=== PATIENT | male | born 1940 | race Caucasian/White ===

== ENCOUNTER 2018-02-16 10:00 | Outpatient (RCR) | payer OTHER, MEDICAID, SELFPAY | END 2018-02-16 10:05 | disposition home or self-care (01) | LOC: PT 10:00 | PROVIDERS: Family Provider Internal Medicine Adolescent Medicine; PCP Internal Medicine Adolescent Medicine; Visit Provider Nurse Practitioner Family | DX: E11.40 Type 2 diabetes mellitus with diabetic neuropathy, unspecified (principal) | CPT/HCPCS: 97110; 97112; 97163; 97164 ==

== ENCOUNTER 2018-10-22 13:00 | Outpatient (RCR) | payer OTHER, MEDICARE, SELFPAY | END 2018-10-22 13:05 | disposition home or self-care (01) | LOC: PT 13:00 | PROVIDERS: Visit Provider Psychiatry & Neurology Neurology | DX: R26.9 Unspecified abnormalities of gait and mobility (principal) | CPT/HCPCS: 97110; 97112; 97116; 97163; 97164 ==

== ENCOUNTER 2019-09-10 15:54 | Emergency (ER) | payer MEDICARE, OTHER, SELFPAY ==
[2019-09-10 16:01] VITALS: BP 121/63; PULSE 74; RESP 18; TEMP 36.7; O2SAT 97; BMI 35.5
[2019-09-10 16:14] VITALS: BP 121/63; PULSE 74; RESP 18; TEMP 36.7; O2SAT 97; BMI 35.3
--- NOTE | 2019-09-10 16:44 | HMH.EDUTC ---
[facility] Clinical Impression: Laceration Disposition: Home, Self-Care Condition on Discharge: Good Instructions: DI for Laceration Repair -- Simple, DI for Laceration Repair -- Finger Additional Instructions: You have required stitches today. Please read the following instructions so you know how to care for them: 1. Keep wound area dry for the first 24 hours. 2 May clean gently with mild soap and water, after 48 hours to prevent crusting over suture knots. 3. You may shower if your provider gives permission but do not take a bath until the skin is healed.. 4. Never leave a wet dressing or Band-Aid on your stitches as this allows bacteria to reach the area and may cause infection. Band-aids can cause the wound to sweat and not recommended to wear for long periods of time Watch for signs of infection: Increasing redness, tenderness or warmth around the suture site Unusual swelling around the site Appearance of pus around each suture or any red streaks Fever If you develop any of the above signs or symptoms of infection, Follow up with Family Physician immediately 5. Suture removal in _10-12___days 6. Return to [facility] or follow up with family doctor for removal. This can be done by any medical provider during regular hours on Thursday through Thursday, by appointment. Prescriptions: Amoxicillin/Potassium Clav [Augmentin 500mg tab] 500 mg PO BID 5 Days #10 tab Prescription Printed Referrals: Provider,Referral, [Primary Care Provider] - As needed Time of Disposition: 16:49 Medical Decision Making - Abhi Inquiry Pt receiving controlled substance: No Abhi was queried for this patient: No Vital Signs: 09/10/19 16:01 09/10/19 16:14 09/10/19 16:46 Temperature 98.1 F 98.1 F 98.1 F Temperature Source Oral Oral Pulse Rate 74 Pulse Rate [Right] 74 74 Respiratory Rate 18 18 18 Blood Pressure 121/63 Blood Pressure [Right Arm] 121/63 121/63 Blood Pressure Mean [Right Arm] 82 82 Blood Pressure Source [Right Arm] Automatic Cuff Blood Pressure Position [Right Arm] Sitting 02 Sat by Pulse Oximetry 97 97 Oxygen Delivery Method Room Air - Reevaluation(s) Time: 16:52 Reevaluation #1: Medication discussed with pharmacy [facility] [place] - General Stated complaint: AO [id number] to L little finger Time Seen by Provider: 09/10/19 16:20 Mode of Arrival: Ambulatory Source of Information: Patient Limitations: No Limitations Description of Symptoms (Recalled from Triage Doc. by RN): PATIENT C/O LACERATION ON LEFT PINKY FINGER AFTER CUTTING IT ON A TOOL BOX. HE IS UP TO DATE ON HIS TETANUS VACCINE HEENT Symptoms (Recalled from RN notes): No Resp Symptoms (Recalled from RN notes): No Skin Symptoms (Recalled from RN notes): Yes MS Symptoms (Recalled from RN notes): No Functional Status (Recalled from RN notes): WNL - History of Present Illness Provider Complaint: Patient states that he was at home and went to raise up metal tool box lid and it cut his finger States that he applied some pressure and didnt realize his cut was as bad as it was and needed stiches until his looked at it and made him come - Related Data Home Medications Medication Instructions Recorded Confirmed Amlodipine Besylate [Amlodipine 2.5 mg PO DAILY 07/21/18 07/21/18 5mg tab] Cholecalciferol (Vitamin D3) 1,000 unit PO DAILY 07/21/18 07/21/18 [Vitamin D3 1,000 Unit Cap] Duloxetine HCl 20 mg PO HS 07/21/18 07/21/18 clonazePAM [Clonazepam] 1 mg PO BID 07/21/18 07/21/18 hydroCHLOROthiazide [HCTZ 25mg 25 mg PO DAILY 07/21/18 07/21/18 tab] Previous Rx's Medication Instructions Recorded Amoxicillin/Potassium Clav 500 mg PO BID 5 Days #10 tab 09/10/19 [Augmentin 500mg tab] Allergies Allergy/AdvReac Type Severity Reaction Status Date / Time carbamazepine Allergy Unknown I-HIVES Verified 07/21/18 17:54 - Worker's Comp Is this a Worker's Comp case?: No [facility] History - Hepatitis A
[2019-09-10 16:46] VITALS: BP 121/63; PULSE 74; RESP 18; TEMP 36.7; O2SAT 97
== END 2019-09-10 17:03 | disposition home or self-care (01) ==
PROVIDERS: Emergency Provider Nurse Practitioner
DX: S61.217A Laceration without foreign body of left little finger without damage to nail, initial encounter (principal); W22.8XXA Striking against or struck by other objects, initial encounter; Y92.019 Unspecified place in single-family (private) house as the place of occurrence of the external cause; E11.9 Type 2 diabetes mellitus without complications; Z88.8 Allergy status to other drugs, medicaments and biological substances; Z79.899 Other long term (current) drug therapy
CPT/HCPCS: 12001; G0463; 99201

== ENCOUNTER 2019-09-21 13:51 | Emergency (ER) | payer MEDICARE, OTHER, SELFPAY ==
[2019-09-21 14:05] VITALS: BP 116/78; PULSE 85; RESP 18; TEMP 36.7; O2SAT 100; BMI 32.3
[2019-09-21 14:23] VITALS: BP 116/78; PULSE 85; RESP 18; TEMP 36.7; O2SAT 100
== END 2019-09-21 14:23 | disposition home or self-care (01) ==
LOC: UTC 13:59
PROVIDERS: Emergency Provider Nurse Practitioner Family
DX: S61.217D Laceration without foreign body of left little finger without damage to nail, subsequent encounter (principal)

== ENCOUNTER 2019-12-26 11:16 | Emergency (ER) | payer MEDICARE, OTHER, SELFPAY ==
[2019-12-26 11:27] VITALS: BP 143/74; PULSE 82; RESP 17; TEMP 37.2; O2SAT 99; BMI 34.9
--- NOTE | 2019-12-26 11:37 | HMH.EDFALL ---
ED Disposition Clinical Impression: Ankle fracture, lateral malleolus, closed Qualifiers: Encounter type: initial encounter Fracture alignment: displaced Laterality: left Qualified Code(s): S82.62XA - Displaced fracture of lateral malleolus of left fibula, initial encounter for closed fracture Disposition: [facility] Condition on Discharge: Fair Referrals: Provider,Referral, MD [Primary Care Provider] - Forms: Transfer Record - ED - Critical Care Critical Care Time: No Attestation: On , the high probability of a clinically significant, sudden or life threatening deterioration of the following system(s) required my full and direct attention, intervention and personal management. The time I documented below is in addition to time spent performing reported procedures but includes the following listed in this critical care notation. Medical Decision Making - Medical Records Medical records reviewed: Yes: I reviewed the patient's medical records. - Abhi Inquiry Pt receiving controlled substance: Yes (morphine in the ER) Abhi was queried for this patient: No (unable to do so prior to administering meds as patient in acute distress) Reason not queried -: Emergent pt cond-no time Risks and benefits of using a controlled substance: were discussed with pt by me Vital Signs: 12/26/19 11:27 12/26/19 11:51 12/26/19 12:23 Temperature 99.0 F Temperature Source Oral Pulse Rate [Right Radial] 82 73 62 Respiratory Rate 17 20 91 H Blood Pressure [Right Arm] 143/74 H 139/72 133/71 Blood Pressure Mean [Right Arm] 97 94 91 Blood Pressure Source [Right Arm] Automatic Cuff Automatic Cuff Blood Pressure Position [Right Arm] Sitting Sitting 02 Sat by Pulse Oximetry 99 96 92 L Oxygen Delivery Method Room Air 12/26/19 14:30 12/26/19 15:26 Temperature Temperature Source Pulse Rate [Right Radial] 68 65 Respiratory Rate 20 18 Blood Pressure [Right Arm] 144/52 H 142/61 H Blood Pressure Mean [Right Arm] 82 88 Blood Pressure Source [Right Arm] Automatic Cuff Automatic Cuff Blood Pressure Position [Right Arm] Supine Sitting 02 Sat by Pulse Oximetry 99 91 L Oxygen Delivery Method Room Air - Lab Data Lab Results 12/26/19 11:25: WBC 12.7 H, RBC 4.86, Hgb 15.0, Hct 46.7, MCV 96.1 H, MCH 30.8, MCHC 32.1, RDW 13.9, Plt Count 328, MPV 7.2 L, Neut % (Auto) 67.6, Lymph % (Auto) 22.0, [place] % (Auto) 6.2, Eos % (Auto) 3.6, Baso % (Auto) 0.7, Neut # (Auto) 8.6 H, Lymph # (Auto) 2.8, [place] # (Auto) 0.8, Eos # (Auto) 0.5 H, Baso # (Auto) 0.1 12/26/19 11:25: PT 11.0, INR 0.99, APTT 26.5 12/26/19 11:25: Sodium 141, Potassium 4.4, Chloride 101, Carbon Dioxide 28, Anion Gap 16.4 H, BUN 19, Creatinine 1.50 H, Estimated Creat Clear 52, Estimated GFR 45 L, Est GFR ( Amer) 54 L, Glucose 132 H, Calcium 9.9, Total Bilirubin 0.8, AST 112 H, ALT 61, Alkaline Phosphatase 75, Total Protein 8.2, Albumin 4.9, Globulin 3.3 H, Albumin/Globulin Ratio 1.5 12/26/19 11:25: SARS-CoV-2 IgG Ab (Rapid) Negative, SARS-CoV-2 IgM Ab (Rapid) Negative Result diagrams: 12/26/19 11:25 12/26/19 11:25 Orders (Tests/Meds): ED MEDICATIONS Discontinued Medications Generic Name Dose Route Start Last Admin Trade Name Freq PRN Reason Stop Dose Admin Hydromorphone HCl 0.5 mg 12/26/19 12:03 12/26/19 12:05 Hydromorphone 2mg/Ml Syringe IV 12/26/19 12:04 0.5 mg ONCE ONE Administration Hydromorphone HCl 0.5 mg 12/26/19 13:09 12/26/19 13:15 Hydromorphone 2mg/Ml Syringe IV 12/26/19 13:10 0.5 mg ONCE ONE Administration Cefazolin Sodium 2 gm/ Sodium 50 mls @ 100 mls/hr 12/26/19 11:45 12/26/19 11:58 Chloride IV 12/26/19 12:14 100 mls/hr ONCE ONE Administration Protocol Morphine Sulfate 4 mg 12/26/19 11:40 12/26/19 11:46 Morphine 4mg/Ml Syringe IV 12/26/19 11:41 4 mg ONCE ONE Administration Morphine Sulfate 4 mg 12/26/19 13:44 12/26/19 13:44 Morphine 4mg/Ml Syringe IV 12/26/19 13:45 4 m
--- NOTE | 2019-12-26 11:40 | XR_ITS ---
PROCEDURE: XR CHEST PORTABLE CLINICAL HISTORY: fall Posttraumatic pain COMPARISON: No exams were available for comparison FINDINGS: The cardiomediastinal silhouette and pulmonary vascularity are within normal limits. The lungs are clear without infiltrates, suspicious nodules, or pleural effusions. No acute bony abnormalities. IMPRESSION: No acute findings. Dictated by: Waldo Berrios MD 12/26/2019 12:25 Waldo Berrios MD in [place] 12/26/2019 12:25
--- NOTE | 2019-12-26 11:40 | XR_ITS ---
PROCEDURE: XR ANKLE LT 2V CLINICAL INDICATION: fall Posttraumatic pain COMPARISON: No exams were available for comparison FINDINGS: Ankle fracture dislocation is evident. On the AP view the talus is dislocated laterally. There is fracture of the distal fibula with significant widening of the ankle mortise with dorsal subluxation of the talus is well. There is a calcific density overlying the distal tibia shaft anteriorly and medially of unknown clinical significance. IMPRESSION: Fracture dislocation of the ankle as described above Dictated by: Waldo Berrios MD 12/26/2019 12:27 Waldo Berrios MD in [facility] 12/26/2019 12:27
--- NOTE | 2019-12-26 11:40 | XR_ITS ---
PROCEDURE: XR PELVIS 1-2V CLINICAL INDICATION: fall Posttraumatic pain COMPARISON: No exams were available for comparison TECHNIQUE: XR Pelvis AP View FINDINGS: No fracture or dislocation is evident. There are mild osteoarthritic changes of the hips No lytic or blastic change. IMPRESSION: No acute findings. Dictated by: Waldo Berrios MD 12/26/2019 12:25 Waldo Berrios MD in [facility] 12/26/2019 12:25
--- NOTE | 2019-12-26 11:43 | XR_ITS ---
PROCEDURE: XR KNEE LT 2V CLINICAL INDICATION: Left ankle fracture/dislocation Pain COMPARISON: No exams were available for comparison FINDINGS: No fracture or dislocation. No lytic or blastic change. There is normal mineralization. 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
--- NOTE | 2019-12-26 11:45 | PC.NURSE ---
MD ASSESSED PT PEDAL PULSES WITH DOPPLER, +1 PULSES NOTED.
[2019-12-26 11:49] LABS: Basophils # 0.1 K/mm3 (0-0.2); Basophils % 0.7 % (0.1-2.0); Eosinophils # 0.5 K/mm3 (0.0-0.4); Eosinophils % 3.6 % (0.1-12.0); Hematocrit 46.7 % (42.0-52.0); Lymphocytes # 2.8 K/mm3 (0.7-4.5); Mean Corpuscular HGB Conc 32.1 g/dL (31.8-35.4); Mean Corpuscular Hemoglobin 30.8 pg (27.0-31.2); Mean Corpuscular Volume 96.1 fl (80-94); Mean Platelet Volume 7.2 fl (7.4-10.4); Monocytes # 0.8 K/mm3 (0.1-1.0); Monocytes % 6.2 % (1.7-9.3); Neutrophils # 8.6 K/mm3 (1.8-7.8); Neutrophils % 67.6 % (37.0-80.0); Platelet Count 328 K/mm3 (142-424); Red Blood Count 4.86 M/mm3 (4.60-6.20); Red Cell Distribution Width 13.9 % (11.5-17.5); White Blood Count 12.7 K/mm3 (4.8-10.8)
[2019-12-26 11:50] LABS: Chloride 101 mmol/L (98-107); Potassium 4.4 mmoL/L (3.5-5.1); Sodium 141 mmol/L (136-145)
[2019-12-26 11:51] VITALS: BP 139/72; PULSE 73; RESP 20; O2SAT 96
[2019-12-26 11:53] LABS: Alanine Aminotransferase 61 U/L (12-78); Albumin Level 4.9 g/dl (3.5-5.0); Albumin/Globulin Ratio 1.5 (1.1-1.8); Alkaline Phosphatase 75 U/L (38-126); Anion Gap 16.4 mEq/L (5-15); Aspartate Amino Transferase 112 U/L (17-59); Bilirubin,Total 0.8 mg/dl (0.2-1.3); Blood Urea Nitrogen 19 mg/dl (9-20); Calcium 9.9 mg/dl (8.4-10.2); Carbon Dioxide 28 mmol/L (22.0-30.0); Creatinine Clearance Estimated 52 mL/min (50-200); Estimated Glomerular Filt Rate 45 ml/min (>60); GFR (African American) 54 ML/MIN (>60); Globulin 3.3 g/dL (1.3-3.2); Glucose 132 mg/dl (74-100); Total Protein,Serum 8.2 g/dl (6.3-8.2)
--- NOTE | 2019-12-26 11:56 | PC.NURSE ---
tdap given to left deltoid. lot number [id number], expiration date 09/21/21. unable to chart on may. education given.
[2019-12-26 11:58] LABS: Activated Partial Thrombo Time 26.5 seconds (23.6-34.0); INR 0.99 (0.9-1.1)
[2019-12-26 12:23] VITALS: BP 133/71; PULSE 62; RESP 91; O2SAT 92
--- NOTE | 2019-12-26 13:17 | PC.NURSE ---
dr pinto consulting with ne hospitalist concerning possible transfer at this time.
[2019-12-26 13:23] LABS: Coronavirus 19 IgG Antibody Negative (Negative); Coronavirus 19 IgM Antibody Negative (Negative)
--- NOTE | 2019-12-26 13:27 | PC.NURSE ---
pt accepted at [facility]. pt pending bed placement. dr pinto consulting with dr dawson concerning limb management until transfer due to possible length of stay here at [facility]. awaiting recommedation and further orders.
--- NOTE | 2019-12-26 13:50 | PC.NURSE ---
dr pinto at bedside to attempt ankle reduction.
--- NOTE | 2019-12-26 14:02 | XR_ITS ---
PROCEDURE: XR ANKLE LT 2V CLINICAL INDICATION: post reduction Follow-up closed reduction COMPARISON: No exams were available for comparison FINDINGS: There remains lateral dislocation of the talus with oblique fracture of the distal fibula with lateral displacement. There has been some improvement in the anterior subluxation. Severe widening of the ankle mortise noted. A cast is in place. IMPRESSION: Persistent lateral ankle dislocation with fracture distal fibula Dictated by: Waldo Berrios MD 12/26/2019 14:24 Waldo Berrios MD in [place] 12/26/2019 14:24
--- NOTE | 2019-12-26 14:24 | PC.NURSE ---
Dr Castillo on with Dr Rojas
[2019-12-26 14:30] VITALS: BP 144/52; PULSE 68; RESP 20; O2SAT 99
--- NOTE | 2019-12-26 14:39 | PC.NURSE ---
Dr Rojas in with pt for reduction.
--- NOTE | 2019-12-26 14:49 | PC.NURSE ---
nicole at bedside to attempt ankle reduction with dr arzate assisting. report called to marylin sun rn at [facility]. [facility] notification pending upon reduction stability and completion.
--- NOTE | 2019-12-26 14:56 | XR_ITS ---
PROCEDURE: XR ANKLE LT 2V CLINICAL INDICATION: post reduction Postreduction 2. COMPARISON: CR XR ANKLE LT 2V from 12/26/2019 CR XR ANKLE LT 2V from 12/26/2019 FINDINGS: There is a cast in place. There remains lateral dislocation of the ankle with fracture of the distal fibula lateral dislocation has slightly improved. There is approximately 50 percent apposition of the talus on the tibia. IMPRESSION: Ankle fracture dislocation with persistent lateral talar subluxation Dictated by: Waldo Berrios MD 12/26/2019 16:20 Waldo Berrios MD in [facility] 12/26/2019 16:20
--- NOTE | 2019-12-26 14:57 | PC.NURSE ---
left ankle post reduction complete by dr rivera assisted by dr pinto. pt tolerated well with moderate discomfort. awaiting post reduction film follow up for transfer.
[2019-12-26 15:26] VITALS: BP 142/61; PULSE 65; RESP 18; O2SAT 91
[2019-12-26 15:55] VITALS: BP 116/50; PULSE 71; RESP 17; TEMP 36.6; O2SAT 95
== END 2019-12-26 16:01 | disposition short-term general hospital (02) ==
PROVIDERS: Emergency Provider Emergency Medicine
DX: S82.62XA Displaced fracture of lateral malleolus of left fibula, initial encounter for closed fracture (principal); W01.0XXA Fall on same level from slipping, tripping and stumbling without subsequent striking against object, initial encounter; Y92.019 Unspecified place in single-family (private) house as the place of occurrence of the external cause; Z01.84 Encounter for antibody response examination; R56.9 Unspecified convulsions; I10 Essential (primary) hypertension; E11.65 Type 2 diabetes mellitus with hyperglycemia; Z79.4 Long term (current) use of insulin
CPT/HCPCS: 29515; 71045; 72170; 73560; 73600; 80053; 85025; 85610; 85730; 86328; 96365; 96375; 96376; 99285; J2405

== ENCOUNTER 2020-06-22 14:50 | Emergency (ER) | payer MEDICARE, OTHER, SELFPAY ==
[2020-06-22 14:58] VITALS: BP 125/65; PULSE 75; RESP 16; TEMP 36.6; O2SAT 96; BMI 31.9
--- NOTE | 2020-06-22 15:09 | CT_ITS ---
PROCEDURE: CT HEAD/BRAIN WO CON CLINICAL INDICATION: head trauma Head injury with headache/pain, contusion, abrasion or hematoma COMPARISON: CT HEADWO CT head/brain wo con from 07/21/2018 TECHNIQUE: Axial images obtained. All CT scans at the facility use one or more dose reduction, viz: automated exposure control, ma/kV adjustment per patient size (including targeted exams where dose is matched to indication, i.e. head), or iterative reconstruction technique. FINDINGS: No midline shift, mass effect, intracranial hemorrhage, hydrocephalus, or extra-axial fluid collection is evident. There is generalized atrophy with hypoattenuation of the periventricular white matter consistent with microangiopathic changes. The calvarium has an unremarkable appearance. No mastoid effusion. Opacified left posterior and right anterior ethmoid air cells noted. Mild soft tissue swelling noted in the left supraorbital region. IMPRESSION: No acute intracranial finding Dictated by: Waldo Berrios MD 06/22/2020 16:11 Waldo Berrios MD in [facility] 06/22/2020 16:11
--- NOTE | 2020-06-22 15:10 | CT_ITS ---
PROCEDURE: CT FACIAL BONES WO CON CLINICAL HISTORY: facial trauma Laceration above the left eye. Fall with injury and pain COMPARISON: No exams were available for comparison TECHNIQUE: Axial images obtained with sagittal and coronal reformats. All CT scans at the facility use one or more dose reduction, viz: automated exposure control, ma/kV adjustment per patient size (including targeted exams where dose is matched to indication, i.e. head), or iterative reconstruction technique. FINDINGS: There is a mildly depressed nasal bone fracture centrally and on the left with some overlying soft tissue swelling. No nasal septal fracture apparent. There is mild soft tissue swelling in the supraorbital region on the left. No underlying fracture evident. The globes have an unremarkable appearance. There is opacification of the left posterior ethmoid air cell and right anterior ethmoid air cells. No mastoid effusion. There are mild osteoarthritic changes of the right TMJ. Dysplastic changes are present involving the left mandibular condyle with widening of the condyle and flattening of the condylar head which does not set within the condylar fossa. The patient is edentulous IMPRESSION: 1. Minimally depressed nasal bone fracture. 2. Soft tissue swelling in the left nasal area and supraorbital region. 3. Ethmoid sinus disease. 4. Chronic changes of the mandibular condyles Dictated by: Waldo Berrios MD 06/22/2020 16:17 Waldo Berrios MD in [facility] 06/22/2020 16:17
--- NOTE | 2020-06-22 15:14 | HMH.EDGENADL ---
ED Disposition Clinical Impression: Nasal bone fracture Qualifiers: Encounter type: initial encounter Fracture type: closed Qualified Code(s): S02.2XXA - Fracture of nasal bones, initial encounter for closed fracture Facial trauma Qualifiers: Encounter type: initial encounter Qualified Code(s): S09.93XA - Unspecified injury of face, initial encounter Disposition: Home, Self-Care Condition on Discharge: Good Instructions: DI for Laceration Repair Prescriptions: cephALEXin [cephALEXin 500mg capsule*] 500 mg PO Q6H 7 Days #28 cap Transmission Status: Pending to [facility] Referrals: PCP,No [Primary Care Provider] - Time of Disposition: 17:25 - Critical Care Critical Care Time: No Attestation: On 06/22/20, the high probability of a clinically significant, sudden or life threatening deterioration of the following system(s) required my full and direct attention, intervention and personal management. The time I documented below is in addition to time spent performing reported procedures but includes the following listed in this critical care notation. Medical Decision Making - Medical Records Medical records reviewed: Yes: I reviewed the patient's medical records. - Abhi Inquiry Pt receiving controlled substance: No Vital Signs: 06/22/20 14:58 06/22/20 15:30 06/22/20 16:00 Temperature 98 F Temperature Source Oral Pulse Rate 74 72 Pulse Rate [Radial] 75 Respiratory Rate 16 Blood Pressure 135/60 149/63 H Blood Pressure [Right Arm] 125/65 Blood Pressure Mean [Right Arm] 85 Blood Pressure Position [Right Arm] Sitting 02 Sat by Pulse Oximetry 96 97 97 Oxygen Delivery Method Room Air Medical Decision Narrative: 79-year-old male who presents after a fall from standing mechanical in nature. Patient has mild facial trauma and mild head trauma. CT of the head will be performed as well as a CT of the face. General Adult HPI - General Chief complaint: Wound/Laceration Stated complaint: AO [id number] fell , bruises to face Time Seen by Provider: 06/22/20 15:14 Mode of Arrival: Ambulatory Source of Information: Patient Limitations: No Limitations Description of Symptoms (Recalled from ER Triage Doc. by RN): TO ED PER PVT CAR WITH C/O FALL STATES TRIPPED OVER CONCRETE BLOCK. PT SKIN TEARS TO RT HAND, LT ELBOW, LT SIDE FACE - History of Present Illness HPI narrative: -79year-old male who tripped over a parking curb falling to the ground striking his left side of his face. Negative LOC takes aspirin daily. Patient is able to ambulate since the fall with no pain in his hips. He has abrasions over his left elbow right hand and left knee. He has no complaints of pain with movement to those extremities. Complains of no changes in vision, no nausea, no vomiting. Has no headache at this time. Not complaining of any pain other than the abrasions over his hands and elbows that he states pulido due to the breaks in the skin. - Related Data Home Medications Medication Instructions Recorded Confirmed Amlodipine Besylate [Amlodipine 2.5 mg PO DAILY 07/21/18 07/21/18 5mg tab] Cholecalciferol (Vitamin D3) 1,000 unit PO DAILY 07/21/18 07/21/18 [Vitamin D3 1,000 Unit Cap] Duloxetine HCl 20 mg PO HS 07/21/18 07/21/18 clonazePAM [Clonazepam] 1 mg PO BID 07/21/18 07/21/18 hydroCHLOROthiazide [HCTZ 25mg 25 mg PO DAILY 07/21/18 07/21/18 tab] Previous Rx's Medication Instructions Recorded cephALEXin [cephALEXin 500mg 500 mg PO Q6H 7 Days #28 cap 06/22/20 capsule*] Allergies Allergy/AdvReac Type Severity Reaction Status Date / Time carbamazepine Allergy Unknown I-HIVES Verified 12/26/19 11:39 [facility] History - Hepatitis A Screen Drug use history?: No High risk sexual behaviors?: No History of sexually transmitted infection?: No Currently employed?: No Childcare worker?: No Do you have indoor plumbing?: Yes Do you have electricity?: Yes Attestation sta
[2020-06-22 15:30] VITALS: BP 135/60; PULSE 74; O2SAT 97
[2020-06-22 16:00] VITALS: BP 149/63; PULSE 72; O2SAT 97
--- NOTE | 2020-06-22 16:24 | PC.NURSE ---
ABRASIONS AND SKIN TEARS CLEANED AND DSD APPLIED
[2020-06-22 16:32] VITALS: BP 162/60; PULSE 67; O2SAT 99
[2020-06-22 17:01] VITALS: BP 141/71; PULSE 70; O2SAT 98
[2020-06-22 17:42] VITALS: BP 141/71; PULSE 70; RESP 16; TEMP 36.7; O2SAT 98
== END 2020-06-22 17:43 | disposition home or self-care (01) ==
PROVIDERS: Emergency Provider Student in an Organized Health Care Education/Training Program
DX: S02.2XXA Fracture of nasal bones, initial encounter for closed fracture (principal); S09.93XA Unspecified injury of face, initial encounter; S60.511A Abrasion of right hand, initial encounter; S50.312A Abrasion of left elbow, initial encounter; W01.0XXA Fall on same level from slipping, tripping and stumbling without subsequent striking against object, initial encounter; Y92.480 Sidewalk as the place of occurrence of the external cause; E10.9 Type 1 diabetes mellitus without complications; C61 Malignant neoplasm of prostate; Z79.899 Other long term (current) drug therapy
CPT/HCPCS: 70450; 70486; 99282

== ENCOUNTER 2021-01-05 17:27 | Emergency (ER) | payer MEDICARE, MEDICAID, OTHER, SELFPAY ==
[2021-01-05 17:48] VITALS: BMI 30.8
--- NOTE | 2021-01-05 17:51 | XR_ITS ---
PROCEDURE INFORMATION: Exam: XR Left Knee Exam date and time: 01/05/2021 5:51 PM Age: 80 years old Clinical indication: Pain and injury or trauma; Fall; Wound; Patella or knee; Left; Without foreign body; Injury date: 01/05/21; Additional info: Fall/ patient fell has a dislocated finger and a bruise and abrasion to knee TECHNIQUE: Imaging protocol: XR Left knee. Views: 3 views. Total images: 4 COMPARISON: CR XR KNEE LT 2V 12/26/2019 11:58 AM FINDINGS: Bones/joints: No fracture. No blastic or lytic lesions. No significant joint effusion is present. Mild joint space narrowing in the medial tibiofemoral compartment. Mild medial joint line spurring. Soft tissues: No periostitis or osteolysis. Mild prepatellar soft tissue swelling. No foreign bodies. Other findings: Normal alignment. IMPRESSION: 1. No acute osseous injuries. 2. Mild medial compartment osteoarthritic changes and mild prepatellar soft tissue swelling.
--- NOTE | 2021-01-05 17:52 | XR_ITS ---
PROCEDURE INFORMATION: Exam: XR Right Finger(s) Exam date and time: 01/05/2021 5:52 PM Age: 80 years old Clinical indication: Pain and injury or trauma; Fall; Dislocation; Right; Little finger; Hand; Injury date: 01/05/21; Additional info: Fall and dislocated pinky finger TECHNIQUE: Imaging protocol: XR Right fingers. Views: Minimum 2 views. Total images: 3 COMPARISON: No relevant prior studies available. FINDINGS: Bones/joints: Complete medial dislocation of the 5th finger middle phalanx relative to the proximal phalangeal condyle with 90 degrees angulation and about 7 mm proximal over-ride. No gross fracture. Osteopenia. Mild-moderate osteoarthritic changes in the DIP joints and 1st MCP joint. Mild widening of the scapholunate interval at 3.1 mm which could represent normal variant or age-indeterminate scapholunate ligament injury. No signs of SLAC wrist. Soft tissues: Normal. IMPRESSION: 1. Dislocated 5th finger PIP joint as detailed above. No gross fracture. 2. Osteopenia and mild-moderate osteoarthritic changes. 3. Slight widening of the scapholunate interval could represent normal variation or age-indeterminate scapholunate ligament injury.
--- NOTE | 2021-01-05 17:52 | XR_ITS ---
PROCEDURE INFORMATION: Exam: XR Right Hand Exam date and time: 01/05/2021 5:52 PM Age: 80 years old Clinical indication: Injury or trauma; Fall; Blunt trauma (contusions or hematomas); Right; Little finger; Patient HX: Post reduction RT 5th finger TECHNIQUE: Imaging protocol: XR Right hand. Views: 1 or 2 views. Total images: 2 COMPARISON: CR XR FINGER RT MIN 2V 01/05/2021 6:02 PM FINDINGS: Bones/joints: Previous medial dislocation of the right 5th finger PIP joint has been successfully reduced. Slight residual 1.5 mm residual medial subluxation. Butler-neck deformity of the 5th finger is age indeterminate but might indicate significant volar plate injury at the PIP. No fractures are evident. Mild-moderate osteoarthritic changes in the interphalangeal joints and 1st MCP joint. Soft tissues: Soft tissue swelling in the 5th finger. IMPRESSION: 1. Successful reduction of the 5th finger PIP joint with only slight residual medial subluxation. No fracture. 2. Butler-neck configuration of the 5th finger might indicate destabilizing traumatic volar plate/capsular injury, correlate clinically.
[2021-01-05 17:53] VITALS: BP 157/79; PULSE 74; RESP 18; TEMP 37; O2SAT 97; BMI 30.8
--- NOTE | 2021-01-05 18:59 | HMH.EDGENADL ---
ED Disposition Clinical Impression: Dislocation, finger Qualifiers: Encounter type: initial encounter Qualified Code(s): S63.259A - Unspecified dislocation of unspecified finger, initial encounter Laceration of hand Qualifiers: Encounter type: initial encounter Foreign body presence: without foreign body Laterality: right Qualified Code(s): S61.411A - Laceration without foreign body of right hand, initial encounter Abrasion, knee Qualifiers: Encounter type: initial encounter Laterality: left Qualified Code(s): S80.212A - Abrasion, left knee, initial encounter Disposition: Home, Self-Care Condition on Discharge: Good Instructions: DI for Laceration Repair, DI for Finger Dislocation, DI for Abrasion Additional Instructions: Keep bandage and splint on until seen by orthopedics next week. Call orthopedics, Dr. De La Vega, next week. Call Thursday to make that appointment. Ice and elevate your hand as needed for pain and swelling. Tylenol as needed for pain. Additional instructions for HAND LACERATION: Clean the wound daily with soap and water after bandages removed by orthopedics. Avoid submerging the wound. No swimming.DO NOT USE any antibiotic ointment such as Neosporin, Polysporin, or triple antibiotic. This will delay healing. See your primary care physician or return to the [facility] in 10 days for suture removal. The [facility] is open 9 AM to 9 PM 7 days a week. Return if any signs of infection including increasing pain, pus drainage, swelling, redness, red streaks, or fever. Referrals: Provider,MD Ramon [Primary Care Provider] - Kasi De La Vega JR, MD [Physician] - - Critical Care Critical Care Time: No Attestation: On 01/05/21, the high probability of a clinically significant, sudden or life threatening deterioration of the following system(s) required my full and direct attention, intervention and personal management. The time I documented below is in addition to time spent performing reported procedures but includes the following listed in this critical care notation. Medical Decision Making - Abhi Inquiry Pt receiving controlled substance: No Vital Signs: 01/05/21 17:53 Temperature 98.6 F Temperature Source Oral Pulse Rate [Left Radial] 74 Respiratory Rate 18 Blood Pressure [Right Arm] 157/79 H Blood Pressure Mean [Right Arm] 105 Blood Pressure Source [Right Arm] Automatic Cuff Blood Pressure Position [Right Arm] Sitting 02 Sat by Pulse Oximetry 97 Oxygen Delivery Method Room Air Orders (Tests/Meds): ED MEDICATIONS Discontinued Medications Generic Name Dose Route Start Last Admin Trade Name She PRN Reason Stop Dose Admin Bupivacaine HCl 50 mg 01/05/21 18:59 01/05/21 19:07 Bupivacaine 0.5% 30ml Vial SQ 01/05/21 19:00 50 mg ONCE ONE Administration ORDERS Category Date Time Status XR finger RT min 2V Stat Exams 01/05/21 17:52 Taken XR hand RT 2V Stat Exams 01/05/21 17:52 Taken - Radiology Data #1 Image(s): Hand, Finger(s)/Thumb, Knee Image Reviewed: Yes I reviewed the patient's radiology image Dislocation of the PIP joint of the right small finger. No fracture seen. Left knee x-ray no fracture or dislocation my interpretation. Postreduction x-ray of the right small finger shows reduction of dislocation, no fracture seen. General Adult HPI - General Chief complaint: PAIN Stated complaint: AO 01/05@1700 injured R Little finger Time Seen by Provider: 01/05/21 18:59 Mode of Arrival: Ambulatory Limitations: No Limitations Description of Symptoms (Recalled from ER Triage Doc. by RN): Pt to ed per pvt car. Pt states he was outside today in his garage, he lost his footing and fell. Pt states he caught his fall with his right hand. Pt states he fell on his left knee and is experiencing pain. Obvious deformity noted to the right pinky finger. Pt rates this pain a 10/10. - History of Present Illness HPI narrative:
--- NOTE | 2021-01-05 19:29 | PC.NURSE ---
called and notified rad of need for xray
--- NOTE | 2021-01-05 19:51 | PC.NURSE ---
wound care provided per staff. cleaned with NS, neosporin applied, bandaged and bandages sent home with patient
[2021-01-05 19:54] VITALS: BP 152/70; PULSE 73; RESP 17; TEMP 36.8; O2SAT 98
== END 2021-01-05 19:59 | disposition home or self-care (01) ==
LOC: UTC 17:36 → COUGHCL 17:41 → ER 17:41
PROVIDERS: Emergency Provider Nurse Practitioner Family
DX: S61.411A Laceration without foreign body of right hand, initial encounter (principal); S80.212A Abrasion, left knee, initial encounter; S63.256A Unspecified dislocation of right little finger, initial encounter; W01.10XA Fall on same level from slipping, tripping and stumbling with subsequent striking against unspecified object, initial encounter; Y92.015 Private garage of single-family (private) house as the place of occurrence of the external cause
CPT/HCPCS: 12002; 26705; 73120; 73140; 73562; 99281

== ENCOUNTER 2021-01-15 10:53 | Emergency (ER) | payer OTHER, MEDICARE, MEDICAID, SELFPAY ==
[2021-01-15 11:32] VITALS: BMI 25.1
[2021-01-15 11:33] VITALS: BP 117/75; PULSE 79; RESP 16; TEMP 36.7
== END 2021-01-15 11:34 | disposition home or self-care (01) ==
LOC: UTC 11:05
PROVIDERS: Emergency Provider Nurse Practitioner Family
DX: S61.411D Laceration without foreign body of right hand, subsequent encounter (principal)

== ENCOUNTER 2022-08-22 16:58 | Emergency (ER) | payer MEDICARE, MEDICAID, SELFPAY ==
[2022-08-22 16:59] VITALS: BP 146/81; PULSE 88; RESP 16; TEMP 37.1; O2SAT 99; BMI 30.4
--- NOTE | 2022-08-22 17:07 | PC.NURSE ---
BLADDER SCAN WITH 334-350MLS URINE
--- NOTE | 2022-08-22 17:21 | HMH.EDUROGM ---
Discharge Plan Disposition Patient Disposition: Home, Self-Care Prescriptions Prescriptions: No Action clonazepam 1 MG tablet 1 mg PO BID amlodipine 5 MG tablet 2.5 mg PO DAILY hydrochlorothiazide 25 MG tablet 25 mg PO DAILY cholecalciferol (vitamin D3) 1,000 UNIT capsule 1,000 unit PO DAILY duloxetine 20 MG capsule,delayed release(DR/EC) 20 mg PO HS Referrals Follow up/Referrals: Provider,Referral, MD [Primary Care Provider] - See instructions Activity Restrictions/Add. Instructions Additional Instructions/Restrictions: Please follow-up with your [place] urologist in the next 3 to 4 days. Return to the emergency department if you feel worse in any way. Take all medications as prescribed. Clinical Impressions Clinical Impression: Acute urinary retention Instructions Patient Instructions: DI for Urinary Retention in Men Discharge ED Provider: Sade Ann Urogenital HPI General Stated complaint: Unable to urinate Time Seen by Provider: 08/22/22 17:15 History of Present Illness HPI Narrative: The patient presents to the emergency department complaining of urinary retention since about 11 AM today. He went to the [place] emergency department earlier today with urinary retention. However, he passed a clot and was discharged home without catheterization. He now again has urinary retention. He has a history of prostate cancer status post complete prostatectomy. The prostate cancer has invaded part of the bladder and he has had intermittent bleeding since then. He also received radiation. He denies any recent fevers, nausea, vomiting, and diarrhea. Related Data Home Medications Medication Instructions Recorded Confirmed amlodipine 5 mg tablet 2.5 mg PO DAILY Hypertension 07/21/18 01/11/21 cholecalciferol (vitamin D3) 25 1,000 unit PO DAILY suppliment 07/21/18 01/11/21 mcg (1,000 unit) capsule clonazepam 1 mg tablet 1 mg PO BID seizure 07/21/18 01/11/21 duloxetine 20 mg capsule,delayed 20 mg PO HS mood 07/21/18 01/11/21 release hydrochlorothiazide 25 mg tablet 25 mg PO DAILY Hypertension 07/21/18 01/11/21 Allergies Allergy/AdvReac Type Severity Reaction Status Date / Time carbamazepine Allergy Unknown I-HIVES Verified 01/11/21 14:59 [facility] Disclaimer: The information contained in this section may have been updated after the patient was seen, as this information can be updated by other users. Social History Smoking Status: Never smoker alcohol intake: never current occupational status: retired Travel in the last 8 weeks: None housing: house current occupational exposures/hazards: No ROS Obtained: Yes All systems reviewed & no additional complaints except as documented Physical Exam General General appearance: alert Eye Eye exam: Present normal appearance; Absent scleral icterus or jaundice ENT ENT exam: Present normal exam Respiratory Respiratory exam: Present normal lung sounds bilaterally; Absent respiratory distress Cardiovascular Cardiovascular exam: Present regular rate and normal rhythm Abdominal Exam Abdominal exam: Present soft, normal bowel sounds and other (Some discomfort and fullness to the bladder.); Absent tenderness Neurological Exam Neurological exam: Present alert and oriented X3 Medical Decision Making Abhi Inquiry Pt receiving controlled substance: No Reevaluation(s) Time: 17:23 Reevaluation #1: The patient felt immediate relief after bladder catheterization. Medical Decision Narrative: The patient presents to the emergency department complaining of urinary retention. After a Emery catheter placement the patient felt relief. The urine had blood clots visible. This is most likely due to the patient's invasive prostate cancer. The Emery catheter will be left in place given the patient's frequent episodes of urinary retention today already. The patient has been instructed to follow-up with his urologist at the
--- NOTE | 2022-08-22 17:22 | PC.NURSE ---
URO Jet administered at this time. multiple blood clots observed to come out of the pts urethra and pt began to urinate. 16fr griffith placed and anchored at this time with a leg bag. pt tolerated well
[2022-08-22 17:40] VITALS: BP 136/74; PULSE 74; RESP 16; TEMP 37; O2SAT 97
== END 2022-08-22 17:48 | disposition home or self-care (01) ==
PROVIDERS: Emergency Provider Emergency Medicine
DX: R33.9 Retention of urine, unspecified (principal); R31.9 Hematuria, unspecified; C79.11 Secondary malignant neoplasm of bladder
CPT/HCPCS: 51702; 99283; 99284

== ENCOUNTER 2022-10-12 04:06 | Emergency (ER) | payer MEDICARE, MEDICAID, OTHER, SELFPAY ==
[2022-10-12 04:08] VITALS: BP 158/76; PULSE 74; RESP 18; TEMP 36.6; O2SAT 97; BMI 31.7
--- NOTE | 2022-10-12 04:47 | PC.NURSE ---
Bladder scan shows 69ml
--- NOTE | 2022-10-12 04:49 | HMH.EDGENADL ---
Discharge Plan Disposition Patient Disposition: Home, Self-Care Condition: Good Prescriptions Prescriptions: No Action clonazepam 1 MG tablet 1 mg PO BID amlodipine 5 MG tablet 2.5 mg PO DAILY hydrochlorothiazide 25 MG tablet 25 mg PO DAILY cholecalciferol (vitamin D3) 1,000 UNIT capsule 1,000 unit PO DAILY duloxetine 20 MG capsule,delayed release(DR/EC) 20 mg PO HS Referrals Follow up/Referrals: Provider,Referral, MD [Primary Care Provider] - See instructions Activity Restrictions/Add. Instructions Additional Instructions/Restrictions: Please follow-up with your primary care provider. Please return to the emergency department if you develop any new or worsening symptoms or become concerned for your health. Clinical Impressions Clinical Impression: Hematuria Instructions Patient Instructions: DI for Urinary Tract Infection (UTI), DI for Urinary Tract Infection in Children Discharge ED Provider: Juve Bills Adult HPI General Chief complaint: Urogenital-Male Stated complaint: Cath not draining Time Seen by Provider: 10/12/22 04:20 Mode of Arrival: Ambulatory Source of Information: Patient Limitations: No Limitations Description of Symptoms (Recalled from ER Triage Doc. by RN): . History of Present Illness HPI narrative: Pt was recently dx with UTI and hematuria at [place] where a griffith was placed on September 25 for urinary retention secondary to prostate CA and radiation. Pt has experienced intermittent hematuria since May 2012, which his urologist told him is normal after radiation. Tonight he states he has lower abdominal discomfort and states his griffith is not draining. He has had multiple issues with this in the past. Reports no fevers or systemic symptoms. Patient has a leg bag with a long tube. Related Data Home Medications Medication Instructions Recorded Confirmed amlodipine 5 mg tablet 2.5 mg PO DAILY Hypertension 07/21/18 01/11/21 cholecalciferol (vitamin D3) 25 1,000 unit PO DAILY suppliment 07/21/18 01/11/21 mcg (1,000 unit) capsule clonazepam 1 mg tablet 1 mg PO BID seizure 07/21/18 01/11/21 duloxetine 20 mg capsule,delayed 20 mg PO HS mood 07/21/18 01/11/21 release hydrochlorothiazide 25 mg tablet 25 mg PO DAILY Hypertension 07/21/18 01/11/21 Allergies Allergy/AdvReac Type Severity Reaction Status Date / Time carbamazepine Allergy Unknown I-HIVES Verified 01/11/21 14:59 PFSH PFSH Disclaimer: The information contained in this section may have been updated after the patient was seen, as this information can be updated by other users. Social History Smoking Status: Never smoker alcohol intake: never current occupational status: retired Travel in the last 8 weeks: None housing: house current occupational exposures/hazards: No ROS Obtained: Yes All systems reviewed & no additional complaints except as documented Physical Exam General General appearance: alert and in no apparent distress Head Head exam: atraumatic and normocephalic Eye Eye exam: Present normal appearance, PERRL and EOMI ENT ENT exam: Present normal oropharynx and normal external ear exam Neck Neck exam: Present normal inspection and full ROM Chest Chest inspection: Present normal inspection and symmetric chest wall rise; Absent tenderness Respiratory Respiratory exam: Present normal lung sounds bilaterally; Absent respiratory distress Cardiovascular Cardiovascular exam: Present regular rate and normal rhythm Abdominal Exam Abdominal exam: Present soft; Absent distention, tenderness or guarding exam: Present other (Griffith in place) Extremities Exam Extremities exam: Present normal inspection; Absent edema or joint swelling Back Exam Back exam: Present normal inspection; Absent tenderness Neurological Exam Neurological exam: Present alert and oriented X3; Absent motor sensory deficit Psychiatric Psychiatric exam: Present normal affect and norm
[2022-10-12 05:08] VITALS: BP 140/78; PULSE 72; RESP 18; TEMP 36.6
== END 2022-10-12 05:12 | disposition home or self-care (01) ==
PROVIDERS: Emergency Provider Emergency Medicine
DX: R31.9 Hematuria, unspecified (principal); T83.091A Other mechanical complication of indwelling urethral catheter, initial encounter; C61 Malignant neoplasm of prostate
CPT/HCPCS: 99283

== ENCOUNTER 2023-03-27 12:35 | Emergency (ER) | payer MEDICARE, MEDICAID, OTHER, SELFPAY ==
[2023-03-27] VITALS (19 sets, daily range): BP systolic 112–140; BP diastolic 55–86; PULSE 68–87; RESP 16–22; TEMP 36.7–36.8; O2SAT 96–100; BMI 27.3
--- NOTE | 2023-03-27 13:49 | CT_ITS ---
FINAL REPORT CLINICAL HISTORY: previous renal tumor, L CVA mass COMPARISON: None FINDINGS: CT OF THE ABDOMEN AND PELVIS WITH CONTRAST Axial CT images of the abdomen and pelvis were obtained after the administration of IV contrast. Coronal and sagittal reformatted images were also obtained and reviewed. This study was performed with techniques to keep radiation doses as low as reasonably achievable (ALARA). Individualized dose reduction techniques using automated exposure control or adjustment of mA and/or kV according to the patient's size were employed. Abdomen: The lung bases are clear. The heart is normal in size. The liver has an unremarkable appearance, without evidence of mass or biliary ductal dilatation. The gallbladder has been surgically resected. The spleen is unremarkable. No adrenal mass is present. The pancreas has an unremarkable appearance. There are small bilateral renal cysts. There is a 6.2 x 5.2 cm heterogeneous mass in the lower pole of the left kidney, worrisome for neoplasm. There is heterogeneous posterior soft tissue measuring 8.5 x 5.1, which may represent necrotic tumor, which appears to filtrated into the psoas and paraspinal muscles on that side. The overall appearance suggests necrotic tumor, although infection cannot be completely excluded. The renal veins are unremarkable bilaterally and appear patent. There are small retroperitoneal nodes without adenopathy. The aorta is normal in caliber. There is no free fluid or adenopathy. No mass or abnormal fluid collection is seen. There are scattered colonic diverticula without acute inflammation. Pelvis: The appendix is normal in appearance. The urinary bladder is diffusely thickened, and the prostate is not visualized suggesting a prior prostatectomy. No inflammatory process is seen. There is no evidence of mass or adenopathy. There is no evidence of bowel obstruction. IMPRESSION: 6.2 x 5.2 cm heterogeneous mass in the lower pole of the left kidney with heterogeneous soft tissue posterior to the left kidney as described in the body of the report. This is worrisome for neoplasm and may represent necrotic tumor, although infection cannot be excluded. There is bladder wall thickening present, and the prostate is not visualized, suggesting a prior prostatectomy. Reviewed, Interpreted and Dictated by Robert Rosales III, MD Transcribed by Irish Lau Authenticated and [facility]
--- NOTE | 2023-03-27 13:50 | ED_ITS ---
Discharge Plan Disposition Chief Complaint: Skin/Abscess/Foreign Body Prescriptions Prescriptions: No Action clonazepam 1 MG tablet 1 mg PO BID amlodipine 5 MG tablet 2.5 mg PO DAILY hydrochlorothiazide 25 MG tablet 25 mg PO DAILY cholecalciferol (vitamin D3) 1,000 UNIT capsule 1,000 unit PO DAILY duloxetine 20 MG capsule,delayed release(DR/EC) 20 mg PO HS Clinical Impressions Clinical Impression: Left renal mass, Acute UTI Stand Alone Forms Stand Alone Forms: Transfer Record - ED Discharge ED Provider: Jarett Bojorquez General Adult HPI General Chief complaint: Skin/Abscess/Foreign Body Stated complaint: Knot on Back, [facility] Time Seen by Provider: 03/27/23 12:38 Mode of Arrival: Wheelchair Source of Information: Patient Limitations: No Limitations Description of Symptoms (Recalled from ER Triage Doc. by RN): c/o knot on middle left back for approx a month. Pt family states that he had a kidney biopsy on January 19 to check for CA. PT c/o his back knot hurting today and was [facility] come [facility] for further evulation. History of Present Illness HPI narrative: Patient is 82-year-old male with past medical history of previous renal mass status post radiation therapy who presents emergency department for evaluation of CVA swelling. History is obtained by family at bedside and patient. Patient also has a past medical history of prostate cancer status post TURP. Patient also went on multiple rounds of radiation therapy to his bladder for his prostate cancer. Over the last year patient has intermittently had hematuria. Originally patient was diagnosed with renal cancer in 2016. He had a biopsy in January which was reportedly full of fluid . Over the last 4 weeks his left CVA has been painful and swelling, his noticed this this morning and he presents here for continued evaluation. No mindy hematuria. Related Data Home Medications Medication Instructions Recorded Confirmed amlodipine 5 mg tablet 2.5 mg PO DAILY Hypertension 07/21/18 01/11/21 cholecalciferol (vitamin D3) 25 1,000 unit PO DAILY suppliment 07/21/18 01/11/21 mcg (1,000 unit) capsule clonazepam 1 mg tablet 1 mg PO BID seizure 07/21/18 01/11/21 duloxetine 20 mg capsule,delayed 20 mg PO HS mood 07/21/18 01/11/21 release hydrochlorothiazide 25 mg tablet 25 mg PO DAILY Hypertension 07/21/18 01/11/21 Allergies Allergy/AdvReac Type Severity Reaction Status Date / Time carbamazepine Allergy Unknown I-HIVES Verified 01/11/21 14:59 [facility] Disclaimer: The information contained in this section may have been updated after the patient was seen, as this information can be updated by other users. Social History Smoking Status: Never smoker alcohol intake: never current occupational status: retired Travel in the last 8 weeks: None housing: house current occupational exposures/hazards: No ROS Obtained: Yes Systems reviewed as appropriate & no additional complaints except as documented Physical Exam General General appearance: alert and in no apparent distress Head Head exam: atraumatic and normocephalic Eye Eye exam: Present PERRL and EOMI ENT ENT exam: Present mucous membranes moist Neck Neck exam: Present normal inspection Chest Chest inspection: Present normal inspection and symmetric chest wall rise Respiratory Respiratory exam: Present normal lung sounds bilaterally; Absent respiratory di stress Cardiovascular Cardiovascular exam: Present regular rate and normal rhythm Abdominal Exam Abdominal exam: Present soft; Absent tenderness Extremities Exam Extremities exam: Present normal inspection Back Exam Back exam: Present other (Tender mass left CVA) Neurological Exam Neurological exam: Present alert Psychiatric Psychiatric exam: Present normal affect Skin Skin exam: Present warm and dry Medical Decision Making Abhi Inquiry Pt receiving controlled substance: No Vital Signs: 03/27/23 12:36 03/27/23 13:01 03/27/23 13:20 Temperature 98.3 F Temperature Source Oral Pulse Rate 81 84 Pulse Rate [Left Radial] 85 Respiratory Rate 16 18 18 Blood Pressure 122/55 L 129/57 L Blood Pressure [Right Arm] 140/86 Blood Pressure Mean 80 81 Blood Pressure Mean [Right Arm] 104 Blood Pressure Source [Right Arm] Automatic Cuff Blood Pressure Position [Right Arm] Sitting 02 Sat by Pulse Oximetry 99 100 98 Oxygen Delivery Method Room Air 03/27/23 13:40 03/27/23 14:00 03/27/23 14:20 Temperature Temperature Source Pulse Rate 82 87 80 Pulse Rate [Left Radial] Respiratory Rate 18 18 16 Blood Pressure 123/55 L 134/56 L 116/63 Blood Pressure [Right Arm] Blood Pressure Mean 88 82 83 Blood Pressure Mean [Right Arm] Blood Pressure Source [Right Arm] Blood Pressure Position [Right Arm] 02 Sat by Pulse Oximetry 100 98 100 Oxygen Delivery Method 03/27/23 14:40 03/27/23 15:00 03/27/23 15:20 Temperature Temperature Source Pulse Rate 79 77 73 Pulse Rate [Left Radial] Respiratory Rate 18 Blood Pressure 128/63 129/63 125/60 Blood Pressure [Right Arm] Blood Pressure Mean 88 98 81 Blood Pressure Mean [Right Arm] Blood Pressure Source [Right Arm] Blood Pressure Position [Right Arm] 02 Sat by Pulse Oximetry 100 98 97 Oxygen Delivery Method 03/27/23 15:40 03/27/23 16:00 03/27/23 16:20 Temperature Temperature Source Pulse Rate 74 73 72 Pulse Rate [Left Radial] Respiratory Rate 18 16 18 Blood Pressure 116/63 112/60 116/58 L Blood Pressure [Right Arm] Blood Pressure Mean 83 79 84 Blood Pressure Mean [Right Arm] Blood Pressure Source [Right Arm] Blood Pressure Position [Right Arm] 02 Sat by Pulse Oximetry 99 98 96 Oxygen Delivery Method 03/27/23 16:40 03/27/23 17:00 03/27/23 17:20 Temperature Temperature Source Pulse Rate 75 72 73 Pulse Rate [Left Radial] Respiratory Rate 16 18 22 Blood Pressure 113/61 115/66 113/62 Blood Pressure [Right Arm] Blood Pressure Mean 78 82 82 Blood Pressure Mean [Right Arm] Blood Pressure Source [Right Arm] Blood Pressure Position [Right Arm] 02 Sat by Pulse Oximetry 98 98 98 Oxygen Delivery Method Lab Data Lab Results 03/27/23 14:00: WBC 13.2 H, RBC 3.50 L, Hgb 9.5 L, Hct 29.6 L, MCV 84.6, MCH 27.0, MCHC 32.0, RDW 15.0, Plt Count 675 H, MPV 8.0, Neut % (Auto) 81.9 H, Lymph % (Auto) 10.7, Monroe % (Auto) 4.3, Eos % (Auto) 2.7, Baso % (Auto) 0.5, Neut # (Auto) 10.8 H, Lymph # (Auto) 1.4, Monroe # (Auto) 0.6, Eos # (Auto) 0.4, Baso # (Auto) 0.1, Sodium 137, Potassium 4.3, Chloride 102, Carbon Dioxide 26, Anion Gap 13.3, BUN 23 H, Creatinine 1.50 H, Estimated Creat Clear 41, Estimated GFR 45 L, Est GFR ( Amer) 54 L, Glucose 195 H, Calcium 9.1, Total Bilirubin 0.4, AST 28, ALT 22, Alkaline Phosphatase 78, Lactate Dehydrogenase 134 L, Total Protein 7.2, Albumin 3.4 L, Globulin 3.8 H, Albumin/Globulin Ratio 0.9 L 03/27/23 15:50: Urine Color Yellow, Urine Appearance Sl cloudy, Urine pH 6.0, Ur Specific Ashley 1.010, Urine Protein Negative, Urine Glucose (UA) Negative, Urine Ketones Negative, Urine Blood Negative, Urine Nitrate Negative, Urine Bilirubin 1+ A, Urine Urobilinogen 0.2, Ur Leukocyte Esterase 1+ A, Urine RBC None, Urine WBC 20-50, Ur Squamous Epith Cells Occasional, Urine Bacteria 2+ 03/27/23 16:22: SARS-CoV-2 (PCR) Not detected, Influenza A Untype (PCR) Not detected, Influenza Type B (PCR) Not detected 03/27/23 14:00 03/27/23 14:00 Orders (Tests/Meds): ED MEDICATIONS Generic Name Dose Route Start Last Admin Trade Name Freq PRN Reason Stop Dose Admin Sodium Chloride 10 ml 03/27/23 14:51 Sodium Chloride 0.9% 10ml Syr (Rad Only) IV 04/26/23 14:50 NEEDED PRN Maintain IV Site Discontinued Medications Generic Name Dose Route Start Last Admin Trade Name Freq PRN Reason Stop Dose Admin Acetaminophen 1,000 mg 03/27/23 13:49 03/27/23 14:08 Acetaminophen 1,000mg/100ml Vial IV 03/27/23 13:50 1,000 mg ONCE ONE Administration Ceftriaxone Sodium 1 gm/ 50 mls @ 100 mls/hr 03/27/23 16:13 03/27/23 16:28 Sodium Chloride IV 03/27/23 16:42 100 mls/hr ONCE ONE Administration Iopamidol 75 ml 03/27/23 14:51 03/27/23 14:53 Iopamidol-370 (76%);100ml Bottle IV 03/27/23 14:52 75 ml ONCE ONE Administration Morphine Sulfate 2 mg 03/27/23 13:49 03/27/23 14:08 Morphine 4mg/Ml Syringe IV 03/27/23 13:50 2 mg ONCE ONE Administration ORDERS Category Date Time Status CT abdomen pelvis w con Stat Cat Scan 01/12/24 13:49 Completed CBC w/Auto Diff [Complete Blood Count Auto Diff] Stat Lab 03/27/23 14:00 Completed CMP [Comprehensive Metabolic Panel] Stat Lab 03/27/23 14:00 Completed LDH [Lactate Dehydrogenase] Stat Lab 03/27/23 14:00 Completed Rapid PCR Covid and Flu A/B Stat Lab 03/27/23 16:22 Completed UA [Urinalysis and Microscopic] Stat Lab 03/27/23 15:50 Completed Urine Culture Stat Micro 03/27/23 15:50 Received Medical Decision Narrative: In summary patient is a 82-year-old male with past medical history described above who presents emergency department for evaluation of CVA mass and pain in the setting of previous prostate cancer and renal cancer. Patient is hemodynamically stable nontoxic-appearing upon arrival, afebrile. My concern for renal malignancy versus abscess is high. Differential also includes hematoma. Workup will be conducted with hematologic labs, CT abdomen pelvis IV contrast. Initial interventions include morphine, IV Tylenol. Initial workup reviewed by me, hematologic labs remarkable for anemia of undetermined ch ronicity as baseline is multiple years old, patient has no active hemorrhage that warrants resuscitation at this time, there is a nonspecific leukocytosis and thrombocytosis. Stable CKD is present, no critical electrolyte abnormality. Urine dip leukoesterase positive, micro pending. CT imaging informally interpreted by me, it appears there is a large destructive mass about the left kidney eroding through adjacent structures. The case was discussed with the [facility] emergency department who will contact internal medicine given that patient requires transfer for admission with pain control and further investigation. The case was discussed with [facility] hospitalist Dr. Rome, patient has a 6.2 x 5.2 cm heterogenous mass in the lower pole of the left kidney with heterogenous soft tissue worrisome for neoplasm although infection cannot be excluded, bladder wall thickening is present. Dr. Rome graciously excepted patient for transfer for continued evaluation at this time. Urinalysis resulted, patient has significant leukocyturia and bacteria for which ceftriaxone will be administered. Patient was transferred in stable condition. Critical Care Critical Care Time Critical Care Time: No
[2023-03-27] MEDS: MORPHINE 4MG/ML SYRINGE 2 MG IV (14:08)
[2023-03-27] MEDS: ACETAMINOPHEN 1,000MG/100ML VIAL 1000 MG IV (14:08)
[2023-03-27 14:15] LABS: Basophils # 0.1 K/mm3 (0-0.2); Basophils % 0.5 % (0.1-2.0); Eosinophils # 0.4 K/mm3 (0.0-0.4); Eosinophils % 2.7 % (0.1-12.0); Hematocrit 29.6 % (42.0-52.0); Hemoglobin 9.5 g/dL (14.1-18.0); Lymphocytes # 1.4 K/mm3 (0.7-4.5); Lymphocytes % 10.7 % (10-50); Mean Corpuscular Volume 84.6 fl (80-94); Monocytes # 0.6 K/mm3 (0.1-1.0); Monocytes % 4.3 % (1.7-9.3); Neutrophils # 10.8 K/mm3 (1.8-7.8); Neutrophils % 81.9 % (37.0-80.0); Platelet Count 675 K/mm3 (142-424); White Blood Count 13.2 K/mm3 (4.8-10.8)
[2023-03-27 14:18] LABS: Chloride 102 mmol/L (98-107); Potassium 4.3 mmoL/L (3.5-5.1); Sodium 137 mmol/L (136-145)
[2023-03-27 14:20] LABS: Blood Urea Nitrogen 23 mg/dl (9-20); Creatinine Clearance Estimated 41 mL/min (50-200); Estimated Glomerular Filt Rate 45 ml/min (>60); GFR (African American) 54 ML/MIN (>60)
[2023-03-27 14:21] LABS: Alanine Aminotransferase 22 U/L (12-78); Albumin Level 3.4 g/dl (3.5-5.0); Albumin/Globulin Ratio 0.9 (1.1-1.8); Alkaline Phosphatase 78 U/L (38-126); Anion Gap 13.3 mEq/L (5-15); Aspartate Amino Transferase 28 U/L (17-59); Bilirubin,Total 0.4 mg/dl (0.2-1.3); Calcium 9.1 mg/dl (8.4-10.2); Carbon Dioxide 26 mmol/L (22.0-30.0); Globulin 3.8 g/dL (1.3-3.2); Glucose 195 mg/dl (74-100); Total Protein,Serum 7.2 g/dl (6.3-8.2)
[2023-03-27 14:36] LABS: Lactate Dehydrogenase 134 U/L (313-618)
[2023-03-27] MEDS: IOPAMIDOL-370 (76%);100ML BOTTLE 75 ML IV (14:53)
--- NOTE | 2023-03-27 15:47 | PC.NURSE ---
Dr Carlin speaking with Dr Lau at the [facility]
[2023-03-27 15:54] LABS: Microscopic, Urine URINE MICROSCOPIC (MICROSCOPIC)
[2023-03-27 15:55] LABS: Appearance,Urine SL CLOUDY (Clear); Blood, Urine Negative (Negative); Color,Urine YELLOW (Yellow); Glucose,Urine (UA) Negative (Negative); Ketones,Urine Negative (Negative); Leukocyte Esterase,Urine 1+ (Negative); Nitrate,Urine Negative (Negative); Protein,Urine Negative (Negative); Urobilinogen,Urine 0.2 EU/dl (0.2)
[2023-03-27 15:58] LABS: Bilirubin,Urine 1+ (Negative)
[2023-03-27 16:06] LABS: Bacteria,Urine 2+ /lpf; Squamous Epithelial Cell,Urine Occasional #/hpf (0-5); WBC,Urine 20-50 #/hpf (0-3)
[2023-03-27 16:26] LABS: Coronavirus 19, PCR Not Detected (NotDetected); Influenza A, PCR Not Detected (NotDetected); Influenza B, PCR Not Detected (NotDetected)
[2023-03-27] MEDS: CEFTRIAXONE SODIUM 1 GM in 0.9 % SODIUM CHLORIDE 50 ML IV (16:28)
--- NOTE | 2023-03-27 19:08 | PC.NURSE ---
[facility] HERE TO TRANSPORT PT.
--- NOTE | 2023-03-31 14:22 | PC.NURSE ---
faxed urine culture results to [place] [phone]. aware, no further action at this time
--- NOTE | 2023-04-02 08:08 | PC.NURSE ---
URINE CULTURE RESULTS FAXED TO [facility], 5TH FLOOR [phone]
== END 2023-03-27 19:11 | disposition short-term general hospital (02) ==
PROVIDERS: Emergency Medicine; Emergency Provider Emergency Medicine
DX: N39.0 Urinary tract infection, site not specified (principal); N28.89 Other specified disorders of kidney and ureter
CPT/HCPCS: 74177; 80053; 81001; 83615; 85025; 87086; 87636; 96365; 96375; 99285; J0131; J0696; Q9967

== ENCOUNTER 2023-05-08 18:44 | Emergency (ER) | payer MEDICARE, MEDICAID, OTHER, SELFPAY ==
[2023-05-08] VITALS (9 sets, daily range): BP systolic 125–146; BP diastolic 58–75; PULSE 64–80; RESP 16–19; TEMP 36.7; O2SAT 98–100; BMI 26.6
--- NOTE | 2023-05-08 19:40 | XR_ITS ---
PROCEDURE INFORMATION: Exam: XR Chest Exam date and time: 05/08/2023 8:02 PM Age: 82 years old Clinical indication: Injury or trauma; Fall; Blunt trauma (contusions or hematomas); Additional info: Fall, heparin TECHNIQUE: Imaging protocol: Radiologic exam of the chest. Views: 1 view. COMPARISON: CT ABDOMEN PELVIS W CON 05/08/2023 8:00 PM FINDINGS: Tubes, catheters and devices: Left subclavian PICC line is present, distal tip overlying the approximate location of the atrial caval junction. Lungs: The lungs appear clear. No focal areas of consolidation. Pleural spaces: No pleural effusions. Negative for pneumothorax. Heart/Mediastinum: Cardiac silhouette and pulmonary vasculature are within range of normal. Bones/joints: There is no evidence of acute fracture. Degenerative changes or remote fracture involves the distal right clavicle. IMPRESSION: Negative for an acute cardiopulmonary abnormality.
--- NOTE | 2023-05-08 19:40 | CT_ITS ---
PROCEDURE INFORMATION: Exam: CT Cervical Spine Without Contrast Exam date and time: 05/08/2023 7:54 PM Age: 82 years old Clinical indication: Injury or trauma; Fall; Blunt trauma; Additional info: Fall, heparin TECHNIQUE: Imaging protocol: Computed tomography of the cervical spine without contrast. Total images: 262 Radiation optimization: All CT scans at this facility use at least one of these dose optimization techniques: automated exposure control; mA and/or kV adjustment per patient size (includes targeted exams where dose is matched to clinical indication); or iterative reconstruction. COMPARISON: CT HEAD/BRAIN WO CON 05/08/2023 7:52 PM FINDINGS: Bones/joints: Straightened cervical lordosis with minor levocurvature. Attenuation artifact compromising detail at lower levels. Vertebral body height is preserved. Minor anterolisthesis C7-T1 most likely degenerative. The base of the dens and the C1 and C2 articulations are maintained with moderate degenerative arthropathy. The cervicooccipital junction is intact. The facet joints are appropriately aligned with moderate hypertrophic degenerative facet joint spondylosis throughout. Posterior elements are intact. Moderate degenerative disc disease encompassing all cervical levels from C3 through C7. Small posterior disc osteophyte complex variable severity at all levels from C3 through C7. Attenuation artifact compromises assessment spinal canal contents. No concerning bone lesions. Rotary offset at C1 and C2 compatible with head rotation. Multilevel neural foraminal encroachments. Mastoid air cells: Partially opacified bilateral mastoid air cells. Auditory system: Filling defects bilateral external auditory canals compatible with cerumen. Prevertebral and retropharyngeal spaces: No prevertebral soft tissue swelling. Lungs: Lung apices are clear. Vasculature: Severe calcifications bilateral carotid artery bifurcations. Soft tissues: Unremarkable soft tissues of the neck. IMPRESSION: 1. No acute cervical fracture or traumatic subluxation. 2. Straightened lordosis with minor levocurvature from position or muscle spasm/torticollis. 3. Degenerative changes as described. 4. Severe calcifications bilateral carotid artery bifurcations. Consider follow-up nonemergent carotid Doppler or CTA 5. Partially opacified bilateral mastoid air cells.
--- NOTE | 2023-05-08 19:40 | XR_ITS ---
PROCEDURE INFORMATION: Exam: XR Pelvis Exam date and time: 05/08/2023 8:02 PM Age: 82 years old Clinical indication: Injury or trauma; Fall; Additional info: Fall, heparin TECHNIQUE: Imaging protocol: Radiologic exam of the pelvis. Views: 1 or 2 view. COMPARISON: CT ABDOMEN PELVIS W CON 05/08/2023 8:00 PM FINDINGS: Bones/joints: There is no evidence of acute fracture or dislocation. There are minor degenerative changes of the hip joints. Minor degenerative changes involve the symphyseal pubic joint. Soft tissues: No significant soft tissue edema. No subcutaneous emphysema or radiopaque foreign bodies. IMPRESSION: No acute posttraumatic osseous injury.
--- NOTE | 2023-05-08 19:40 | CT_ITS ---
PROCEDURE INFORMATION: Exam: CT Head Without Contrast Exam date and time: 05/08/2023 7:52 PM Age: 82 years old Clinical indication: Injury or trauma; Fall; Blunt trauma (contusions or hematomas); Additional info: Fall, heparin TECHNIQUE: Imaging protocol: Computed tomography of the head without contrast. Total images: 273 Radiation optimization: All CT scans at this facility use at least one of these dose optimization techniques: automated exposure control; mA and/or kV adjustment per patient size (includes targeted exams where dose is matched to clinical indication); or iterative reconstruction. COMPARISON: No relevant prior studies available. FINDINGS: Brain: No acute intracranial hemorrhage, midline shift, or mass. Moderate cortical atrophy. Moderate periventricular and scattered subcortical white matter hypodensity compatible with remote small vessel ischemic change. Raphael-white interface is maintained. Basilar cisterns are preserved. Remote lacunar infarct left caudate. Remote lacunar infarct left external capsule. Artifact versus remote ischemic change right fabby. Remote deep white matter ischemic changes bilateral subinsular cortex and internal capsules. Cerebral ventricles: Mild ventricular prominence compatible with degree of atrophy. Paranasal sinuses: Mild mucosal thickening scattered ethmoid air cells and base of the left maxillary sinus. No air-fluid levels. Mastoid air cells: Partially opacified bilateral mastoid air cells. Auditory system: Small filling defects bilateral external auditory canals compatible with cerumen. Orbital cavities: Status post bilateral orbital lens replacement. Bones/joints: Unremarkable. No acute fracture. Soft tissues: Unremarkable. Vasculature: Moderate to severe calcifications bilateral intracranial internal carotid and vertebral arteries. Other findings: Mild limitations from attenuation and motion artifact. IMPRESSION: 1. No acute intracranial process. 2. Chronic findings.
--- NOTE | 2023-05-08 19:52 | CT_ITS ---
PROCEDURE INFORMATION: Exam: CT Abdomen And Pelvis With Contrast Exam date and time: 05/08/2023 8:00 PM Age: 82 years old Clinical indication: Other: Possible infection TECHNIQUE: Imaging protocol: Computed tomography of the abdomen and pelvis with contrast. Radiation optimization: All CT scans at this facility use at least one of these dose optimization techniques: automated exposure control; mA and/or kV adjustment per patient size (includes targeted exams where dose is matched to clinical indication); or iterative reconstruction. Contrast material: ISOVUE; Contrast volume: 75 ml; Contrast route: IV; COMPARISON: No relevant prior studies available. FINDINGS: Lungs: The visualized lung bases are clear. Pleural spaces: There are no pleural effusions. Heart: There is no evidence of pericardial fluid collections. The visualized portions of the heart are unremarkable. Liver: The liver is normal. Gallbladder and bile ducts: There has been a cholecystectomy. Pancreas: The pancreas is normal. Spleen: The spleen is normal. Adrenal glands: The adrenal glands are normal. Kidneys and ureters: There are 2 benign-appearing cysts involving the right kidney. There is a small cyst involving the superolateral left kidney. There is a heterogeneous masslike process involving the inferior left kidney which arises exophytically from the inferior medial left kidney measuring approximately 4.6 x 5.1 x 4.2 cm. There is adjacent perilesional fat stranding. This mass appears heterogeneous with mixed attenuation containing areas of intermediate attenuation and areas of fat density. This mass extends toward the left psoas muscle where there is lack of discrete fascial delineation suggesting infiltration. A Percutaneous drainage catheter is present in this region with distal tip located at the left lateral peripheral margin of the adjacent left iliopsoas muscle. here is a well-circumscribed adjacent low-density area posterior to the left iliopsoas muscle along the tract of the drainage catheter laterally measuring approximately 2.7 x 2.1 x 3.9 cm. This shows peripheral enhancement and shows a small adjacent multilocular component. Findings may reflect abscess or necrotic neoplastic process. Correlate clinically. Internal Hounsfield units measure approximately 6 suggesting cystic process. The percutaneous drainage catheter extends just through the medial margin of the cystic area. There is a small area of increased attenuation along the lateral margins of the left psoas which may reflect postoperative blood from percutaneous catheter procedure. No hydronephrosis. Stomach and bowel:There is mildly excessive colonic stool content. Lack of gastrointestinal contrast limits evaluation of bowel. Unopacified loops of small bowel within range of normal. The stomach and duodenum are within range of normal. Appendix: A normal appendix is identified. Intraperitoneal space: There is no evidence of free intraperitoneal or pelvic fluid. No free air. Vasculature: The aorta and iliac arteries demonstrate mild atherosclerotic calcification. Lymph nodes: There is no evidence of pathologic adenopathy. Urinary bladder: The bladder is decompressed. There is moderate bladder wall thickening. Reproductive: The prostate is not seen raising the question of postsurgical change. Bones/joints: There are mild degenerative changes of the hip joints. There are mild degenerative changes of the symphyseal pubic joint. There are mild degenerative changes of the sacroiliac joints. There is no evidence of acute fracture. The thoracolumbar spine demonstrates mild degenerative changes at multiple levels. Soft tissues: There is diastasis of the rectus abdominus musculature. There is minor fat stranding involving the presacral soft tissues. IMPRESSION: 1. Heterogeneous mixed attenuation mass arising from the inferior left kidney. Mixed attenuation with fat density raises the question of possible angiomyolipoma and cannot exclude malignancy. Infection is also included in the differential diagnosis. Correlate clinically. Recommend comparison with prior study, which is not immediately available. The renal mass approximates the left psoas musculature raising the question of possible infiltration. 2. Left posterior percutaneous drainage catheter is present along the paraspinal musculature at the level of the renal mass with distal loop located along the lateral margin of the iliopsoas muscle. The more proximal portion of the tube traverses the medial aspect of a well-circumscribed peripherally enhancing fluid collection in the left posterior paraspinal musculature directly posterior to the psoas muscle worrisome for possible abscess or necrotic neoplastic process. 4. Small area of increased attenuation along the lateral margins of the psoas which may reflect postoperative blood from percutaneous catheter. 5. Moderate bladder wall thickening consistent with chronic outflow obstruction, neoplasm, incomplete distention or cystitis. Correlate clinically and consider urologic consultation. 6. Mild constipation. COMMENTS: Consistent with the [employer] [employer]'s Incidental Findings Committee white paper (J Am Homa Radiol 2018): Any incidental renal lesion less than 1 cm or classified as too small to characterize, or any incidental cystic renal lesion characterized as simple-appearing, is likely benign. No follow-up imaging is recommended for these lesions per consensus recommendations based on imaging criteria.
--- NOTE | 2023-05-08 19:52 | PC.NURSE ---
verbal orders received for initial rad scans
--- NOTE | 2023-05-08 19:53 | PC.NURSE ---
noted additional rad orders and updated Christie,RT
--- NOTE | 2023-05-08 19:55 | PC.NURSE ---
pt to radiology
--- NOTE | 2023-05-08 20:03 | HMH.ITSTN ---
GFR completion/results were overrode for the use of contrast media by the Physician on a risk vs. benefit situation with this patient.
[2023-05-08] MEDS: SODIUM CHLORIDE 0.9% 10ML SYR (RAD ONLY) 10 ML IV (20:04)
[2023-05-08] MEDS: IOPAMIDOL-370 (76%);100ML BOTTLE 75 ML IV (20:04)
--- NOTE | 2023-05-08 20:04 | PC.NURSE ---
call placed to lab to verify receiving blood on patient prior to this shift.
[2023-05-08 20:06] LABS: Basophils % 0.5 % (0.1-2.0); Eosinophils # 0.8 K/mm3 (0.0-0.4); Eosinophils % 10.9 % (0.1-12.0); Hematocrit 31.2 % (42.0-52.0); Hemoglobin 9.7 g/dL (14.1-18.0); Lymphocytes % 28.5 % (10-50); Mean Corpuscular Hemoglobin 28.3 pg (27.0-31.2); Mean Platelet Volume 7.8 fl (7.4-10.4); Monocytes # 0.4 K/mm3 (0.1-1.0); Monocytes % 5.8 % (1.7-9.3); Neutrophils # 3.8 K/mm3 (1.8-7.8); Neutrophils % 54.3 % (37.0-80.0); Platelet Count 512 K/mm3 (142-424); Red Blood Count 3.43 M/mm3 (4.60-6.20); Red Cell Distribution Width 16.8 % (11.5-17.5)
--- NOTE | 2023-05-08 20:09 | PC.NURSE ---
pt back from radiology
[2023-05-08 20:19] LABS: Alanine Aminotransferase 26 U/L (12-78); Albumin Level 3.4 g/dl (3.5-5.0); Alkaline Phosphatase 77 U/L (38-126); Aspartate Amino Transferase 49 U/L (17-59); Bilirubin,Total 0.3 mg/dl (0.2-1.3); Blood Urea Nitrogen 20 mg/dl (9-20); Calcium 9.3 mg/dl (8.4-10.2); Carbon Dioxide 28 mmol/L (22.0-30.0); Chloride 106 mmol/L (98-107); Creatinine Clearance Estimated 39 mL/min (50-200); Estimated Glomerular Filt Rate 41 ml/min (>60); GFR (African American) 50 ML/MIN (>60); Globulin 3.3 g/dL (1.3-3.2); Glucose 119 mg/dl (74-100); Sodium 139 mmol/L (136-145); Total Protein,Serum 6.7 g/dl (6.3-8.2)
[2023-05-08] MEDS: RINGERS SOLUTION,LACTATED 500 ML 999 ML IV (20:23)
--- NOTE | 2023-05-08 21:25 | PC.NURSE ---
Dr. Friend speaking with [facility] regarding scans.
--- NOTE | 2023-05-08 22:05 | PC.NURSE ---
contacted the medical center for possible transfer; advised they will call us back
[2023-05-08 22:11] LABS: Coronavirus 19, PCR Not Detected (NotDetected); Influenza A, PCR Not Detected (NotDetected); Influenza B, PCR Not Detected (NotDetected)
--- NOTE | 2023-05-08 22:19 | PC.NURSE ---
Contacted lab for assistance to obtain blood cultures.
--- NOTE | 2023-05-08 22:50 | PC.NURSE ---
received callback from [facility] at this time.
[2023-05-08 23:04] LABS: VBG Oxygen Saturation 87.3 % (50-70); VBG PCO2 48.3 mmol/L (35-51); VBG PH 7.33 mmol/L (7.31-7.41); VBG PO2 60.4 mmol/L (28-40); VBG Total CO2 26.4 mmol/L (23-27)
--- NOTE | 2023-05-08 23:30 | PC.NURSE ---
Miguelangel from [facility] called back and confirmed the will take him home and follow up on thursday.
--- NOTE | 2023-05-08 23:50 | HMH.EDGENADL ---
Discharge Plan Disposition Patient Disposition: Home, Self-Care Condition: Fair Prescriptions Prescriptions: No Action clonazepam 1 MG tablet 1 mg PO BID amlodipine 5 MG tablet 2.5 mg PO DAILY hydrochlorothiazide 25 MG tablet 25 mg PO DAILY cholecalciferol (vitamin D3) 1,000 UNIT capsule 1,000 unit PO DAILY duloxetine 20 MG capsule,delayed release(DR/EC) 20 mg PO HS Referrals Follow up/Referrals: Provider,Referral, MD [Primary Care Provider] - See instructions Activity Restrictions/Add. Instructions Additional Instructions/Restrictions: You did not have any serious head injuries from your fall. Your skin injuries did not need stitches but you should keep them clean and dry with clean dressings. Your weakness does not seem to be due to an acute worsening of your renal abscess however call your specialist on Thursday to discuss the CT scan that we obtained today and return to the emergency department if you have fevers, vomiting, worsened pain at your drain site, or other concerns. Clinical Impressions Clinical Impression: Fall, Skin tear, Closed head injury, Episode of generalized weakness Instructions Patient Instructions: How to Prevent Falls, DI for Avulsion Laceration (Not Requiring Sutures) Discharge ED Provider: Rachell Friend General Adult HPI General Chief complaint: Fall Stated complaint: fall Time Seen by Provider: 05/08/23 19:40 Mode of Arrival: EMS Source of Information: Patient Limitations: No Limitations Description of Symptoms (Recalled from ER Triage Doc. by RN): PT STATES HE WAS TRYING TO PUT HIS PANTS ON IN THE BATHROOM WHEN HE LOST HIS BALANCE AND FELL INTO THE BATHTUB, STATES HE HIT THE BACK OF HIS HEAD AND HIS L ARM, DENIES LOC, SKIN TEAR NOTED TO L ARM, BLEEDING CONTROLLED, PT IS ON HEPARIN, DENIES PAIN ANYWHERE ELSE History of Present Illness HPI narrative: Otherwise eating and drinking appropriately.82-year-old male with previous medical history of left renal mass with associated abscess currently on outpatient IV antibiotic therapy presents with fall. Patient was discharged from an admission to the [facility] earlier this week in which his outpatient antibiotic therapy was increased from ceftriaxone to daptomycin and ertapenem. Since then he had been doing well until today he seemed slightly weaker than usual. He had a low-energy fall earlier today and then a second fall this evening in which he hit the back of his head on the tub. His has been using heparin flushes for his PICC line so was concerned that he had a fall on blood thinners and hit his head. She was also concerned that he seemed to be more fatigued than usual today and seem to be mumbling instead of articulating well when speaking. No increased pain at the drain site, no fevers, eating and drinking well. Related Data Home Medications Medication Instructions Recorded Confirmed amlodipine 5 mg tablet 2.5 mg PO DAILY Hypertension 07/21/18 01/11/21 cholecalciferol (vitamin D3) 25 1,000 unit PO DAILY suppliment 07/21/18 01/11/21 mcg (1,000 unit) capsule clonazepam 1 mg tablet 1 mg PO BID seizure 07/21/18 01/11/21 duloxetine 20 mg capsule,delayed 20 mg PO HS mood 07/21/18 01/11/21 release hydrochlorothiazide 25 mg tablet 25 mg PO DAILY Hypertension 07/21/18 01/11/21 Allergies Allergy/AdvReac Type Severity Reaction Status Date / Time carbamazepine Allergy Unknown I-HIVES Verified 05/08/23 18:53 [facility] Disclaimer: The information contained in this section may have been updated after the patient was seen, as this information can be updated by other users. Social History Smoking Status: Never smoker alcohol intake: never current occupational status: retired Travel in the last 8 weeks: None housing: house current occupational exposures/hazards: No ROS Obtained: Yes All systems reviewed & no additional complaints except as documented Physical Exam General General appearance: alert and in no apparent distress Comment: Elderly, chronically ill-appearing, no acute distress. Head Head exam: atraumatic, normocephalic and normal inspection Eye Eye exam: Present normal appearance, PERRL and EOMI ENT ENT exam: Present normal exam, normal oropharynx, mucous membranes moist, TM's normal bilaterally and normal external ear exam Neck Neck exam: Present normal inspection, full ROM and trachea midline; Absent meningismus or lymphadenopathy Chest Chest inspection: Present normal inspection and symmetric chest wall rise; Absent tenderness Respiratory Respiratory exam: Present normal lung sounds bilaterally; Absent respiratory distress Cardiovascular Cardiovascular exam: Present regular rate and normal rhythm; Absent JVD Abdominal Exam Abdominal exam: Present soft and normal bowel sounds; Absent distention, tenderness or guarding Extremities Exam Extremities exam: Present normal inspection, full ROM and normal capillary refill; Absent calf tenderness Back Exam Back exam: Present normal inspection and other (Drain over the left CVA appears clean and well-kept.); Absent tenderness Neurological Exam Neurological exam: Present alert and oriented X3 Psychiatric Psychiatric exam: Present normal affect and normal mood Skin Skin exam: Present warm, dry, normal color and other (Skin tears over the left forearm not requiring laceration repair) Lymphatic Lymphatic Findings: no adenopathy Medical Decision Making Abhi Inquiry Pt receiving controlled substance: No Abhi was queried for this patient: No Vital Signs: 05/08/23 18:45 05/08/23 19:00 05/08/23 19:30 Temperature 98.0 F Temperature Source Oral Pulse Rate 74 70 Pulse Rate [Left Radial] 80 Respiratory Rate 16 Blood Pressure 132/62 125/58 L Blood Pressure [Right Arm] 137/61 Blood Pressure Mean 85 80 Blood Pressure Mean [Right Arm] 86 Blood Pressure Source [Right Arm] Automatic Cuff Blood Pressure Position [Right Arm] Sitting 02 Sat by Pulse Oximetry 98 100 98 Oxygen Delivery Method Room Air 05/08/23 20:20 05/08/23 20:30 05/08/23 21:00 Temperature Temperature Source Pulse Rate 69 67 66 Pulse Rate [Left Radial] Respiratory Rate Blood Pressure 140/75 141/75 H 139/67 Blood Pressure [Right Arm] Blood Pressure Mean 96 97 102 Blood Pressure Mean [Right Arm] Blood Pressure Source [Right Arm] Blood Pressure Position [Right Arm] 02 Sat by Pulse Oximetry 100 100 98 Oxygen Delivery Method 05/08/23 21:30 05/08/23 22:00 Temperature Temperature Source Pulse Rate 64 65 Pulse Rate [Left Radial] Respiratory Rate Blood Pressure 136/71 146/71 H Blood Pressure [Right Arm] Blood Pressure Mean 94 104 Blood Pressure Mean [Right Arm] Blood Pressure Source [Right Arm] Blood Pressure Position [Right Arm] 02 Sat by Pulse Oximetry 98 99 Oxygen Delivery Method Lab Data Lab Results 05/08/23 18:48: WBC 7.0, RBC 3.43 L, Hgb 9.7 L, Hct 31.2 L, MCV 91.0, MCH 28.3, MCHC 31.0 L, RDW 16.8, Plt Count 512 H, MPV 7.8, Neut % (Auto) 54.3, Lymph % (Auto) 28.5, [place] % (Auto) 5.8, Eos % (Auto) 10.9, Baso % (Auto) 0.5, Neut # (Auto) 3.8, Lymph # (Auto) 2.0, [place] # (Auto) 0.4, Eos # (Auto) 0.8 H, Baso # (Auto) 0.0, Sodium 139, Potassium 4.0, Chloride 106, Carbon Dioxide 28, Anion Gap 9.0, BUN 20, Creatinine 1.60 H, Estimated Creat Clear 39, Estimated GFR 41 L, Est GFR ( Amer) 50 L, Glucose 119 H, Calcium 9.3, Total Bilirubin 0.3, AST 49, ALT 26, Alkaline Phosphatase 77, Total Protein 6.7, Albumin 3.4 L, Globulin 3.3 H, Albumin/Globulin Ratio 1.0 L 05/08/23 19:58: VBG pH 7.33, VBG pCO2 48.3, VBG pO2 60.4 H, VBG HCO3 25.0, VBG Total CO2 26.4, VBG O2 Saturation 87.3 H, VBG Base Excess -1.0 05/08/23 22:06: SARS-CoV-2 (PCR) Not detected, Influenza A Untype (PCR) Not detected, Influenza Type B (PCR) Not detected 05/08/23 18:48 05/08/23 18:48 Orders (Tests/Meds): ED MEDICATIONS Generic Name Dose Route Start Last Admin Trade Name Freq PRN Reason Stop Dose Admin Sodium Chloride 10 ml 05/08/23 20:04 05/08/23 20:04 Sodium Chloride 0.9% 10ml Syr (Rad Only) IV 06/07/23 20:03 10 ml NEEDED PRN Administration Maintain IV Site Discontinued Medications Generic Name Dose Route Start Last Admin Trade Name Freq PRN Reason Stop Dose Admin Lactated Ringer's 500 mls @ 999 mls/hr 05/08/23 19:58 05/08/23 20:22 Lactated Ringer's 1000 Ml Bag IV 05/08/23 20:28 Not Given .Q31M ONE Lactated Ringer's 500 mls @ 999 mls/hr 05/08/23 20:19 05/08/23 20:23 Lactated Ringer's 500ml IV 05/08/23 20:49 999 mls/hr .Q31M ONE Administration Iopamidol 75 ml 05/08/23 20:04 05/08/23 20:04 Iopamidol-370 (76%);100ml Bottle IV 05/08/23 20:05 75 ml ONCE ONE Administration ORDERS Category Date Time Status CT abdomen pelvis w con Stat Cat Scan 05/08/23 19:[address] cervical spine wo con Stat Cat Scan 05/08/23 19:[address] head/brain wo con Stat Cat Scan 05/08/23 19:40 Completed XR chest portable Stat Exams 05/08/23 19:40 Completed XR pelvis 1-2V Stat Exams 05/08/23 19:40 Completed CBC [Complete Blood Count Auto Diff] Stat Lab 05/08/23 18:48 Completed CMP [Comprehensive Metabolic Panel] Stat Lab 05/08/23 18:48 Completed Rapid PCR Covid and Flu A/B Stat Lab 05/08/23 22:06 Completed Urinalysis and Microscopic Stat Lab 05/08/23 19:58 Ordered Blood Culture Stat Micro 05/08/23 22:35 Received VBG [Venous Blood Gas] Stat RT 05/08/23 19:58 Completed Medical Decision Narrative: Considered that as a result of patient's fall he may have intracranial hemorrhage or C-spine fracture so obtained CT head and C-spine which I independently reviewed and interpreted and showed no intracranial hemorrhage or fractures. Also consider that patient may have weakness today due to infection, worsening of his abscess over the left kidney, bacteremia from his PICC line, endocrinologic and metabolic causes, medication effect, hypovolemia, among others. For this reason obtain broad laboratory evaluation including blood cultures, CMP, CBC, which I independently reviewed and interpreted and showed normal leukocyte count, moderate anemia, no significant abnormalities of CMP to explain his symptoms. CT abdomen pelvis with IV contrast to evaluate for worsening of his infection to explain his weakness was obtained and this I independently reviewed and interpreted and noted the area of a complex heterogenous abscess or mass in the left kidney region. It is unclear at this time if this is worsened from previous imaging as [facility] For this reason called the [facility] where [facility] gotten most of his care and discussed patient's recent admissions and recent imaging with [facility] physician Dr. Guajardo. We consulted at length and ultimately it seems that patient has been moderately weak since he was discharged and abscess in the left CVA region does not seem to be dramatically worsened. For this reason discussed this at length with patient and his and discussed with them that we will be happy to transfer [facility] for [facility] for [facility] if needed however it would also be appropriate to monitor symptoms at home and follow closely with outpatient specialist by calling his infectious disease doctor on Thursday to discuss his CT scan and his ED visit. Patient and his are preferring to monitor symptoms at home at this time but provided extensive return precautions and they understand and agree to monitor symptoms and return if needed. Critical Care Critical Care Time Critical Care Time: No
== END 2023-05-08 23:56 | disposition home or self-care (01) ==
PROVIDERS: Emergency Provider Emergency Medicine
DX: S09.8XXA Other specified injuries of head, initial encounter (principal); R53.1 Weakness; S51.812A Laceration without foreign body of left forearm, initial encounter; Z79.01 Long term (current) use of anticoagulants; W18.2XXA Fall in (into) shower or empty bathtub, initial encounter
CPT/HCPCS: 36415; 70450; 71045; 72125; 72170; 74177; 80053; 82803; 85025; 87040; 87636; 99285; Q9967

== ENCOUNTER 2023-05-15 18:07 | Emergency (ER) | payer MEDICARE, OTHER, SELFPAY ==
[2023-05-15 18:07] VITALS: BP 170/79; PULSE 82; RESP 15; TEMP 36.9; O2SAT 98; BMI 26.6
[2023-05-15 18:19] VITALS: BP 145/66; PULSE 78; O2SAT 97
--- NOTE | 2023-05-15 18:30 | CT_ITS ---
PROCEDURE INFORMATION: Exam: CT Head Without Contrast Exam date and time: 05/15/2023 6:47 PM Age: 82 years old Clinical indication: Injury or trauma; Fall; Blunt trauma (contusions or hematomas); Additional info: Fall on ac TECHNIQUE: Imaging protocol: Computed tomography of the head without contrast. Radiation optimization: All CT scans at this facility use at least one of these dose optimization techniques: automated exposure control; mA and/or kV adjustment per patient size (includes targeted exams where dose is matched to clinical indication); or iterative reconstruction. COMPARISON: CT HEAD/BRAIN WO CON 05/08/2023 7:52 PM FINDINGS: Brain: Moderate supratentorial white matter hypodensities are likely the sequela of chronic small vessel ischemic disease. 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 Mild atrophy. No hemorrhage, edema, or mass effect. Cerebral ventricles: No ventriculomegaly. Paranasal sinuses: Visualized sinuses are unremarkable. No fluid levels. Mastoid air cells: Visualized mastoid air cells are well aerated. Bones/joints: Unremarkable. No acute fracture. Soft tissues: Right frontal scalp soft tissue swelling. IMPRESSION: No acute intracranial findings.
--- NOTE | 2023-05-15 18:30 | CT_ITS ---
PROCEDURE INFORMATION: Exam: CT Cervical Spine Without Contrast Exam date and time: 05/15/2023 6:47 PM Age: 82 years old Clinical indication: Injury or trauma; Fall; Blunt trauma; Additional info: Fall on ac TECHNIQUE: Imaging protocol: Computed tomography of the cervical spine without contrast. Radiation optimization: All CT scans at this facility use at least one of these dose optimization techniques: automated exposure control; mA and/or kV adjustment per patient size (includes targeted exams where dose is matched to clinical indication); or iterative reconstruction. COMPARISON: CT CERVICAL SPINE WO CON 05/08/2023 7:54 PM FINDINGS: Bones/joints: No cervical spine fracture or acute listhesis. Unchanged grade 1 anterolisthesis of C7 over T1 secondary to severe facet arthropathy. Extensive osteophytic spurring of the odontoid and anterior arch of C1. Moderate/severe multilevel degenerative disc disease is greatest at C4-C5, C5-C6, and C6-C7. Multilevel severe bilateral facet arthropathy is greatest on the right at C2-C3 and on the left at C3-C4 and C4-C5 and bilaterally at C7-T1. Moderate right C2-C3, left C3-C4, left C4-C5 neural foraminal stenosis. Mild C4-C5, C5-C6, and C6-C7 spinal canal stenosis. Lungs: Lung apices are normal. Vasculature: Severe calcified plaque in the bilateral carotid bulbs. Soft tissues: Unremarkable. IMPRESSION: No acute findings.
--- NOTE | 2023-05-15 18:44 | PC.NURSE ---
pt going to ct
[2023-05-15 18:48] LABS: Activated Partial Thrombo Time 28.1 seconds (22.8-30.6); INR 1.03 (0.9-1.1); Prothrombin Time 11.1 seconds (10.1-12.5)
--- NOTE | 2023-05-15 18:52 | PC.NURSE ---
pt arrived back to room from ct
--- NOTE | 2023-05-15 19:12 | ED_ITS ---
Discharge Plan Disposition Patient Disposition: Home, Self-Care Chief Complaint: Fall Prescriptions Prescriptions: No Action clonazepam 1 MG tablet 1 mg PO BID amlodipine 5 MG tablet 2.5 mg PO DAILY hydrochlorothiazide 25 MG tablet 25 mg PO DAILY cholecalciferol (vitamin D3) 1,000 UNIT capsule 1,000 unit PO DAILY duloxetine 20 MG capsule,delayed release(DR/EC) 20 mg PO HS Referrals Follow up/Referrals: Provider,Referral, MD [Primary Care Provider] - See instructions Activity Restrictions/Add. Instructions Additional Instructions/Restrictions: Call your family doctor to establish care for this visit to the emergency department and schedule follow-up within 48 hours to ensure improvement. If you have any worsening of your condition or any other concerning signs or symptoms, return to the emergency department or your primary care doctor for further evaluation. Clinical Impressions Clinical Impression: Fall Closed head injury Qualifiers: Encounter type: initial encounter Qualified Code(s): S09.90XA - Unspecified injury of head, initial encounter Discharge ED Provider: Jarett Bojorquez General Adult HPI General Chief complaint: Fall Stated complaint: fall Time Seen by Provider: 05/15/23 18:19 Mode of Arrival: EMS Source of Information: Patient Limitations: No Limitations Description of Symptoms (Recalled from ER Triage Doc. by RN): pt presents to ED via EMS for fall and laceration. pt reports he was walking supper into his house, his legs gave out and he fell hitting the concrete. pt has small abrasion to left forehead and small abrasion to right index finger. pt does take heparin. [facility] and [facility] today for a procedure unrelated to the fall. History of Present Illness HPI narrative: 82-year-old male who is a [facility] patient with history of hypertension, seizure disorder presenting with fall. Patient states that he was recently seen at the [facility] for a nephric abscess. Had drain pulled a couple weeks prior to this visit. Is receiving antibiotics via right upper extremity PICC line at home. States t hat he had an appointment at the [facility] today, when he got home, he tripped after getting out of the car and landed straight on his forehead. No loss of consciousness. No neck or back pain. He is having mild to moderate pain right side of his forehead. No other pain or trauma. Related Data Home Medications Medication Instructions Recorded Confirmed amlodipine 5 mg tablet 2.5 mg PO DAILY Hypertension 07/21/18 01/11/21 cholecalciferol (vitamin D3) 25 1,000 unit PO DAILY suppliment 07/21/18 01/11/21 mcg (1,000 unit) capsule clonazepam 1 mg tablet 1 mg PO BID seizure 07/21/18 01/11/21 duloxetine 20 mg capsule,delayed 20 mg PO HS mood 07/21/18 01/11/21 release hydrochlorothiazide 25 mg tablet 25 mg PO DAILY Hypertension 07/21/18 01/11/21 Allergies Allergy/AdvReac Type Severity Reaction Status Date / Time carbamazepine Allergy Unknown I-HIVES Verified 05/08/23 18:53 [facility] Disclaimer: The information contained in this section may have been updated after the patient was seen, as this information can be updated by other users. Social History Smoking Status: Never smoker alcohol intake: never current occupational status: retired Travel in the last 8 weeks: None housing: house current occupational exposures/hazards: No ROS Obtained: Yes All systems reviewed & no additional complaints except as documented Physical Exam General General appearance: alert and in no apparent distress Head Head exam: normocephalic and other (Superficial abrasions overlying right side of forehead. No laceration amenable to repair. No obvious fracture or signs of basilar skull fracture) Eye Eye exam: Present normal appearance, PERRL and EOMI ENT ENT exam: Present mucous membranes moist Neck Neck exam: Present normal inspection, full ROM and trachea midline Respiratory Respiratory exam: Absent respiratory distress, wheezes, stridor, accessory muscle use or prolonged expiratory phase Cardiovascular Cardiovascular exam: Present normal rhythm Abdominal Exam Abdominal exam: Present soft; Absent distention, tenderness, guarding, rebound or rigidity Extremities Exam Extremities exam: Absent edema Neurological Exam Neurological exam: Present alert, oriented X3, CN II-XII intact and normal gait; Absent motor sensory deficit Skin Skin exam: Present warm and dry; Absent diaphoresis or erythema Medical Decision Making Medical Records Medical records reviewed: Yes I reviewed the patient's medical records. Abhi Inquiry Pt receiving controlled substance: No Abhi was queried for this patient: No Vital Signs: 05/15/23 18:07 05/15/23 18:19 Temperature 98.5 F Temperature Source Oral Pulse Rate 78 Pulse Rate [Left Radial] 82 Respiratory Rate 15 Blood Pressure 145/66 H Blood Pressure [Right Arm] 170/79 H Blood Pressure Mean [Right Arm] 109 02 Sat by Pulse Oximetry 98 97 Oxygen Delivery Method Room Air Room Air Lab Data Lab Results 05/15/23 18:32: PT 11.1, INR 1.03, APTT 28.1 Orders (Tests/Meds): ED MEDICATIONS Discontinued Medications Generic Name Dose Route Start Last Admin Trade Name She PRN Reason Stop Dose Admin Ketorolac Tromethamine 15 mg 05/15/23 19:13 05/15/23 19:25 Ketorolac 30mg/Ml Vial IV 05/15/23 19:14 15 mg ONCE ONE Administration ORDERS Category Date Time Status CT cervical spine wo con Stat Cat Scan 05/15/23 18:[address] head/brain wo con Stat Cat Scan 05/15/23 18:30 Completed PT/INR [Prothrombin Time INR] Stat Lab 05/15/23 18:32 Completed PTT [Activated Partial Thrombo Time] Stat Lab 05/15/23 18:32 Completed Medical Decision Narrative: 82-year-old male who is [facility] with history of hypertension, seizure d isorder presenting with fall. Patient states that he was recently seen at the [facility] for a nephric abscess. Had drain pulled a couple weeks prior to this visit. Is receiving antibiotics via right upper extremity PICC line at home. States that he had an appointment at the [facility] today, when he got home, he tripped after getting out of the car and landed straight on his forehead. No loss of consciousness. No neck or back pain. He is having mild to moderate pain right side of his forehead. No other pain or trauma. History was obtained via conversation with patient and . On arrival, patient hemodynamically stable, alert, oriented x4, appropriate, GCS 15, moving all extremities spontaneously, pupils equal and reactive to light. Full physical exam performed and significant for well-appearing male no acute distress. He is in a cervical collar with EMS. Superficial abrasion right side of forehead. No lack amenable to closure. He does have some blood, but largely hemostatic. No signs of depressed or basilar skull fracture. Neurovascular intact. Differential includes fracture, MSK injury, intracranial bleed, cervical spine injury, hyperextension injury, among others. Patient was given Toradol 15 mg for symptomatic management and correction of underlying abnormalities. Workup independently interpreted and significant for no acute fracture or bony abnormality, intracranial bleed. See radiology read for full review of final results. On reevaluation, patient resting comfortably bed. Given patient presentation, workup, history, this most likely represents closed head trauma in the setting of fall. Because patient at baseline without signs or symptoms of clinical decompensation, deemed appropriate for discharge. Results were relayed to patient who voiced understanding and were agreeable to outpatient management and follow up. At the time of discharge the patient was hemodynamically stable, tolerating PO, and mobilizing appropriately. Critical Care Critical Care Time Critical Care Time: No
[2023-05-15] MEDS: KETOROLAC 30MG/ML VIAL 15 MG IV (19:25)
[2023-05-15 20:15] VITALS: BP 125/85; PULSE 73; RESP 18; TEMP 36.6; O2SAT 97
== END 2023-05-15 20:18 | disposition home or self-care (01) ==
PROVIDERS: Emergency Provider Emergency Medicine
DX: R51.9 Headache, unspecified (principal); S00.81XA Abrasion of other part of head, initial encounter; S60.410A Abrasion of right index finger, initial encounter; I10 Essential (primary) hypertension; G40.909 Epilepsy, unspecified, not intractable, without status epilepticus; N15.1 Renal and perinephric abscess; Z79.01 Long term (current) use of anticoagulants; Z79.2 Long term (current) use of antibiotics; W19.XXXA Unspecified fall, initial encounter
CPT/HCPCS: 70450; 72125; 85610; 85730; 96374; 99285

== ENCOUNTER 2024-07-08 07:34 | Emergency (ER) | payer OTHER, MEDICARE, SELFPAY ==
[2024-07-08 07:41] VITALS: BP 172/80; PULSE 75; RESP 18; TEMP 37; O2SAT 97; BMI 27.3
--- NOTE | 2024-07-08 07:46 | PC.NURSE ---
dr ritter at bedside
[2024-07-08 08:00] VITALS: BP 158/72; PULSE 64; O2SAT 97
--- NOTE | 2024-07-08 08:08 | CT_ITS ---
FINAL REPORT TECHNIQUE: Axial images were obtained of the cervical spine by computed tomography. Coronal and sagittal reconstruction process performed. This study was performed with techniques to keep radiation doses as low as reasonably achievable (ALARA). Individualized dose reduction techniques using automated exposure control or adjustment of mA and/or kV according to the patient''s size were employed. CLINICAL HISTORY: fall struck occiput COMPARISON: 05/15/2023 FINDINGS: There is no acute fracture. There is no malalignment there is advanced disc space narrowing at C4-5, C5-6, and C6-7. There is posterior osteophyte formation at C4-5, C5-6, and C6-7. There is bilateral facet hypertrophy. Moderate vascular calcifications are noted at the carotid bifurcations. IMPRESSION: No acute fracture. Hypertrophic changes of degenerative disc disease at C4-5, C5-6, and C6-7. Reviewed, Interpreted and Dictated by Eric Rosales MD Transcribed by Ana Paula Serra Authenticated and [facility]
--- NOTE | 2024-07-08 08:08 | CT_ITS ---
FINAL REPORT TECHNIQUE: Axial CT images were performed through the head. Coronal reformatted images were submitted. This study was performed with techniques to keep radiation doses as low as reasonably achievable (ALARA). Individualized dose reduction techniques using automated exposure control or adjustment of mA and/or kV according to the patient's size were employed. CLINICAL HISTORY: fall, struck occiput COMPARISON: 05/15/2023 FINDINGS: The head is asymmetrically positioned in the gantry. There is moderate atrophy. The ventricles are normal in size. There is no evidence of hemorrhage. There is no mass or edema identified. There is no abnormal extra-axial fluid seen. There is lobular mucoperiosteal thickening in both maxillary sinuses and ethmoid air cells. IMPRESSION: No acute intracranial process. Diffuse atrophy. Chronic maxillary and ethmoid sinusitis. Reviewed, Interpreted and Dictated by Eric Rosales MD Transcribed by Ana Paula Serra Authenticated and [facility]
[2024-07-08 08:30] VITALS: BP 146/69; PULSE 68; O2SAT 98
--- NOTE | 2024-07-08 08:53 | ED_ITS ---
Discharge Plan Disposition Patient Disposition: Home, Self-Care Chief Complaint: Fall Prescriptions Prescriptions: No Action clonazepam 1 MG tablet 1 mg PO BID amlodipine 5 MG tablet 2.5 mg PO DAILY hydrochlorothiazide 25 MG tablet 25 mg PO DAILY cholecalciferol (vitamin D3) 1,000 UNIT capsule 1,000 unit PO DAILY duloxetine 20 MG capsule,delayed release(DR/EC) 20 mg PO HS Referrals Follow up/Referrals: Provider,Referral, MD [Primary Care Provider] - See instructions Activity Restrictions/Add. Instructions Additional Instructions/Restrictions: Call your family doctor to establish care for this visit to the emergency department and schedule follow-up within 48 hours to ensure improvement. If you have any worsening of your condition or any other concerning signs or symptoms, return to the emergency department or your primary care doctor for further evaluation. López to be removed in 10 days. Clean with warm soapy water, dab dry. Do not scrub. You can use staple remover in 10 days to remove at home, or bring them to family to care doctor's office to be removed there. You can also return to the emergency department here and lópez will be removed without needing to check in for another visit. If removing at home, use staple remover with 1 tooth on top and 2 teeth on bottom, then close around staple and lift upward. Do not remove forcefully Clinical Impressions Clinical Impression: Laceration of scalp Print Language Print Language: Croatian Discharge ED Provider: Jarett Bojorquez General Adult [facility] General Chief complaint: Fall Stated complaint: AO 07/08/24 0645, fell, lac to back of head Time Seen by Provider: 07/08/24 07:36 Mode of Arrival: Ambulatory Source of Information: Patient and Spouse Description of Symptoms (Recalled from ER Triage Doc. by RN): Patient presents to ED after a fall this morning around 0645. Patient states he was getting dressed and his legs gave out. states he fell backwards not sure what his head hit. Patient has x2 lacerations to the back of his head. Patient reports no pain at this time. History of Present Illness HPI narrative: Please note that above description of symptoms, in this electronic medical record under categorization of recalled from ER triage doctor by RN are reflective of an initial nursing assessment, however, is not reflective of my full history and physical exam that was personally taken and clarified. Consequentially, this preceding description of symptoms, which may include the patient's categorized chief complaint in the EMR, do not reflect my personal clinical impression, and the ultimate description of history of present illness and patient stated complaints should be deferred to this section of the note. Unless stated otherwise or congruent with this section of the note, additional signs, symptoms, or incongruence should be interpreted as inaccurate with my clinical impression. Related Data Home Medications ?Medication ?Instructions ?Recorded ?Confirmed amlodipine 5 mg tablet 2.5 mg PO DAILY Hypertension 07/21/18 01/11/21 cholecalciferol (vitamin D3) 25 1,000 unit PO DAILY suppliment 07/21/18 01/11/21 mcg (1,000 unit) capsule clonazepam 1 mg tablet 1 mg PO BID seizure 07/21/18 01/11/21 duloxetine 20 mg capsule,delayed 20 mg PO HS mood 07/21/18 01/11/21 release hydrochlorothiazide 25 mg tablet 25 mg PO DAILY Hypertension 07/21/18 01/11/21 Allergies Allergy/AdvReac Type Severity Reaction Status Date / Time carbamazepine Allergy Unknown I-HIVES Verified 05/08/23 18:53 [facility] Disclaimer: The information contained in this section may have been updated after the patient was seen, as this information can be updated by other users. Social History Smoking Status: Never smoker alcohol intake: never current occupational status: retired Travel in the last 8 weeks: None housing: house current occupational exposures/hazards: No Have you lived/traveled outside [place] in past 30 days?: No Contact w/someone who lives/traveled outside [place] past 30 days?: No Exposure to someone with infectious disease in past 14 days?: No Do you have a fever (greater than 100.4 F or 38 C)?: No Have you tested positive for COVID-19: No Exposed to someone with COVID-19 in past 14 days?: No Do you have a sore throat?: No Do you have a cough?: No Do you have any weakness?: No Do you have any diarrhea?: No Are you experiencing any unusual bleeding?: No Do you have any muscle aches/pain?: No Do you have any abdominal pain?: No Are you experiencing loss of taste or smell?: No Other Medical History Have you received the Flu Vaccine for this season: No Have you received the Pneumonia Vaccine: Yes ROS Obtained: Yes All systems reviewed & no additional complaints except as documented Physical Exam General General appearance: alert Head Head exam: normocephalic and other (2 lacerations on the posterior scalp forming 90 degree angle. 6 centimeters total) Eye Eye exam: Present normal appearance, PERRL and EOMI Neck Neck exam: Present normal inspection, full ROM and trachea midline Respiratory Respiratory exam: Absent respiratory distress, wheezes, stridor, accessory muscle use or prolonged expiratory phase Cardiovascular Cardiovascular exam: Present other (Pulses equal symmetric in upper and lower extremities) Abdominal Exam Abdominal exam: Present soft; Absent distention, tenderness or pulsatile mass Extremities Exam Extremities exam: Absent edema Neurological Exam Neurological exam: Present alert, oriented X3 and CN II-XII intact; Absent motor sensory deficit Skin Skin exam: Present warm and dry; Absent diaphoresis or erythema Medical Decision Making Medical Records Medical records reviewed: Yes I reviewed the patient's medical records. Screening: Per USPSTF and CDC recommendations, given the prevalence of disease in our region, it is our hospital?s policy to screen for HIV and viral Hepatitis for all patients aged 18 and over and those with ongoing risk factors. Abhi Inquiry Pt receiving controlled substance: No Abhi was queried for this patient: No Vital Signs: 07/08/24 07:41 07/08/24 08:00 07/08/24 08:30 Temperature 98.6 F Temperature Source Oral Pulse Rate 64 68 Pulse Rate [Right Brachial] 75 Respiratory Rate 18 Blood Pressure 158/72 H 146/69 H Blood Pressure [Right Arm] 172/80 H Blood Pressure Mean [Right Arm] 110 Blood Pressure Source [Right Arm] Automatic Cuff Blood Pressure Position [Right Arm] Supine 02 Sat by Pulse Oximetry 97 97 98 Oxygen Delivery Method Room Air Orders (Tests/Meds): ORDERS Category Date Time Status CT cervical spine wo con Stat Cat Scan 07/08/24 08:[address] head/brain wo con Stat Cat Scan 07/08/24 08:08 Completed Medical Decision Narrative: 83-year-old male no relevant medical history presenting with fall. He states that he was walking inside when he turned around, lost his balance, fell backward and hit his head. Hit his head on some shelving. No loss of consciousness, came straight to the emergency department. Patient is not on anticoagulation. States that the head aches and pulido, but no significant pain. History obtained with patient and . On arrival, very clinically well. Alert, oriented, no acute distress. He has 6 cm of lacerations on his posterior occiput and 2 separate lacerations. No midline spinal tenderness, Nexus C-spine negative. Differential includes intracranial hemorrhage, occult cervical spine injury, among others. Lacerations were repaired using 3 lópez each, total [address] imaging was obtained. On independent interpretation, no acute intracranial hemorrhage, no cervical spine injury. Given patient presentation, workup, history, this most likely represents a fall with benign head trauma. Because patient at baseline without signs or symptoms of clinical decompensation, deemed appropriate for discharge. Results were relayed to patient who voiced understanding and were agreeable to outpatient management and follow up. I discussed my clinical impression with patient and answered all questions. At this time, the evidence for any other entities in the differential is insufficient to warrant any further testing or ED observation. This was explained as well. Advisory was given that persistent or worsening symptoms require further evaluation. I confirmed the understanding of this discussion. [employer] disclaimer Much of this encounter note is an electronic shuttle van driver spoken language to printed text. Electronic shuttle van driver of the spoken language may permit error s. Although I have reviewed the note, some errors may still exist. Procedures Laceration Laceration 1: Site: scalp Side (If applicable): right Size (cm): 3 Description: linear Depth: involves subcutaneous layer Pre-repair: wound explored Skin layer closed with: other (lópez) Number of sutures: 3 Technique: simple, interrupted Laceration 2: Site: scalp Side (If applicable): right Size (cm): 3 Description: linear Depth: involves subcutaneous layer Pre-repair: wound explored Skin layer closed with: other (lópez) Number of sutures: 3 Technique: simple, interrupted Critical Care Critical Care Time Critical Care Time: No
[2024-07-08 09:18] VITALS: BP 150/79; PULSE 64; RESP 18; TEMP 36.9; O2SAT 100
== END 2024-07-08 09:25 | disposition home or self-care (01) ==
PROVIDERS: Emergency Provider Emergency Medicine
DX: S01.01XA Laceration without foreign body of scalp, initial encounter (principal); W18.30XA Fall on same level, unspecified, initial encounter
CPT/HCPCS: 12002; 70450; 72125; 99285